=== PATIENT | male | born 1945 | race Caucasian/White ===

== ENCOUNTER 2024-07-11 14:27 | Inpatient (IN) | payer OTHER, SELFPAY ==
[2024-07-11] VITALS (27 sets, daily range): BP systolic 59–173; BP diastolic 44–109; BMI 26.8; BMI 26.4
[2024-07-11 10:08] LABS: % Basophils 0.5 % (0-2); % Eosinophils 2.5 % (0-6); % Immature Granulocytes 0.4 % (0-0.5); % Lymphocytes 38.3 % (20.5-51.1); % Neutrophils 48.3 % (42.2-75.2); Absolute Eosinophils 0.1 10^3/uL (0-0.7); Absolute Lymphocytes 2.2 10^3/uL (1.2-3.4); Absolute Monocytes 0.6 10^3/uL (0.1-0.6); Absolute Neutrophils 2.7 10^3/uL (1.4-6.5); Hematocrit 43.6 % (39.0-52.0); Mean Corp Hgb Conc. 34.4 g/dL (33.0-37.0); Mean Corpuscular Hgb 29.8 pg (27.0-31.0); Mean Corpuscular Volume 86.7 fL (80.0-94.0); Mean Platelet Volume 10.4 fL (7.4-10.4); Nucleated Red Blood Cells % 0 % (-); Platelet Count 222 10^3/uL (130-400); Red Blood Cell Count 5.03 10^6/uL (4.70-6.10); Red Cell Dist. Width 13.3 % (11.5-14.5); White Blood Cell Count 5.6 10^3/uL (4.8-10.8)
[2024-07-11 10:16] LABS: ALT (SGPT) 22 U/L (0-50); AST (SGOT) 26 U/L (17-59); Albumin 5.4 g/dl (3.5-5.0); Alkaline Phosphatase 76 U/L (38-126); Blood Urea Nitrogen 15 mg/dl (9-20); Calcium 9.3 mg/dl (8.4-10.2); Carbon Dioxide 24 mmol/L (22-30); Chloride 102 mmol/L (98-107); Glucose 149 mg/dl (70-99); Potassium 3.5 mmol/L (3.5-5.1); Sodium 141 mmol/L (135-145); Total Protein 8.6 g/dl (6.3-8.2); eGFR > 60.00
[2024-07-11 10:28] LABS: Troponin I < 0.012 ng/ml
--- NOTE | 2024-07-11 11:47 | ED.GENMED ---
History of Present Illness
<Jon Benites PA-C - Last Filed: 07/11/24 16:36>
General
Chief Complaint: Chest Pain
Time Seen by Provider: 07/11/24 11:26
History of Present Illness
History of Present Illness:
78-year-old male presents to the emergency department for evaluation of exertional chest discomfort for the past 3 days. States that if he ambulates short distance he has a pressure sensation in the right chest that resolves after a short period of
time at rest. Currently no pain at present in the ED. States the symptoms are comparable to his past angina, had an MO in 2004 and underwent stenting at this hospital. Follows with Dr. Victor. No pleuritic pain, nausea, vomiting, or diarrhea.
Pain does not radiate to the back or shoulders.
Past History
<Jon Benites PA-C - Last Filed: 07/11/24 16:36>
Past History
ED Past Medical History: HTN, Hypercholesterolemia and Hypothyroidism
Social History
Tobacco: Former smoker
Personal: Single
Review of Systems
<Jon Benites PA-C - Last Filed: 07/11/24 16:36>
Review of Systems
Allergies reviewed?: Yes
All Other Systems: ROS reviewed and negative except as documented in HPI and ROS
Phy Exam
<Jon Benites PA-C - Last Filed: 07/11/24 16:36>
Physical Exam
Physical Exam:
GEN: Well appearing, NAD, WDWN
HEENT: Oral mucosa moist, no scleral icterus
Cardiac: Regular rate and rhythm, no murmurs
Lung: No respiratory distress, no tachypnea, lungs clear to auscultation bilaterally
MSK: No gross deformity or injuries
Skin: Good color, no pallor or jaundice, no rashes
Neuro: AO x3, moves all extremities freely
Psych: Calm, cooperative
Scores
<Jon Benites PA-C - Last Filed: 07/11/24 16:36>
Heart Score for Chest Pain Patients
STEMI patient?: No
History: Highly Suspicious
ECG: Normal
Age: >/= 65 years
Risk Factors: >/= 3 Risk Factors or History of CAD
Troponin: </= Normal Limit
Heart Score for Chest Pain Patients: 6
Heart Score Risk: 20.3% MACE over next 6 weeks
<JAMA Soto - Last Filed: 07/15/24 08:54>
Heart Score for Chest Pain Patients
Heart Score for Chest Pain Patients: 6
Heart Score Risk: 20.3% MACE over next 6 weeks
Course
<Jon Benites PA-C - Last Filed: 07/11/24 16:36>
Orders/Labs/Results
Orders:
Orders
07/11/24 Breakfast
NPO
Allow oral meds: Yes
Allow clear liquids: No
07/11/24 09:34
Electrocardiogram (*1) Urgent
Reason for Study: Chest Pain
EKG- Treatment ONCE
07/11/24 09:45
Complete Blood Count/With Diff Urgent
Comprehensive Metabolic Panel Urgent
Magnesium Urgent
TSH Urgent
Comment: ADD ON
Troponin I Urgent
07/11/24 11:44
EKG- Treatment ONCE
07/11/24 12:45
Electrocardiogram (*1) Urgent
Reason for Study: Chest Pain
07/11/24 12:52
Echo 2D MMode Color/Doppler Routine
Reason for Study: SOB/chest discomfort
Metoprolol [Lopressor] 12.5 mg PO NOW STA
07/11/24 12:53
EKG [Electrocardiogram (*1)] Routine
Reason for Study: Chest Pain
07/11/24 13:00
Flush (0.9% Sodium Chloride) [Flush (Nss)] See Dose Instructions IV PER PROTOCOL
07/11/24 13:11
Troponin I Urgent
07/11/24 13:49
Admit/Transfer Patient As Directed
Co-Sign Provider:
Level of Care: Inpatient admission
Assign to:: IVU
Physician / Group: Ananth/Hospitalist
Diagnosis: CP, angina, ACS, trop elevation
Reason for Hospitalization: ACS, angina, trop elevation
Expected length of stay greater than two midnights?: Yes
ELOS- Estimated Length of Stay in days: 3
I certify the patient meets the requirements for IP care: Yes
PRN Pain Medication Management As Directed
May give lesser potent ordered pain med per pt: Yes
preference::
Protocol:: Medication orders for pain may be administered in a
manner that supports deferring to patient preference
when the pt is:
- Requesting an ordered lesser potent pain medication.
Least to most potent pain medications are defined
as: acetaminophen < NSAID < tramadol < opioids
(morphine, oxycodone, hydromorphone).
- Requesting a lesser dose of the same medication IF
ORDERED.
- Requesting a less intrusive route of administration
if both routes are prescribed by the provider (PO <
IV).
07/11/24 13:52
Code Status As Directed
Resuscitation Status: Full Code
07/11/24 13:58
CR Chest - 2 Views Stat
Comment:
Reason For Exam: chest pain
07/11/24 14:00
Aspirin Chewable [Low Strength Aspirin] 324 mg PO NOW STA
Heparin 4,000 units IV NOW STA
Heparin 97141 Units/250 ml 25,000 units in 250 ml IV PER PROTOCOL
Weight to be used for heparin protocol in kilograms (kg):: 77.6
Protocol:: Cardiac Tx/Acute Coronary
PTT Goal Range to be used:: PTT 73 to 111 seconds
Order type:: Initial
INITIAL Infusion Dose (UNITS/KG/hr) & then follow protocol:: 12 units/kg/hr
Infusion Dose in UNITS/hr & then follow protocol (UNITS/hr):: 950
INFUSION RATE in mL/hr & then follow protocol (mL/hr):: 9.5
PTT less than or equal to 64 seconds:: Increase rate by 200 units/hr (+ 2 mL/hr)
PTT 64.1 to 72.9 seconds:: Increase rate by 100 units/hr (+ 1 mL/hr)
PTT 73 to 111 seconds:: Target Range. No change in rate.
PTT 111.1 to 130.9 seconds:: Decrease rate by 100 units/hr (- 1 mL/hr)
PTT 131 to 199.9 seconds:: HOLD for 1 hr. Then decrease rate by 200 units/hr (- 2 mL/hr)
PTT greater than or equal to 200 seconds:: HOLD for 2 hrs & Notify Provider. Then decrease by 200 units/hr (-
2 mL/hr)
Lab follow-up:: Each change, PTT q6h until 2 consecutive are therapeutic. Then PTT
daily.
07/11/24 14:24
PRN Pain Medication Management As Directed
May give lesser potent ordered pain med per pt: Yes
preference::
Protocol:: Medication orders for pain may be administered in a
manner that supports deferring to patient preference
when the pt is:
- Requesting an ordered lesser potent pain medication.
Least to most potent pain medications are defined
as: acetaminophen < NSAID < tramadol < opioids
(morphine, oxycodone, hydromorphone).
- Requesting a lesser dose of the same medication IF
ORDERED.
- Requesting a less intrusive route of administration
if both routes are prescribed by the provider (PO <
IV).
07/11/24 15:42
Electrocardiogram (*1) Q6H
Reason for Study: Chest Pain
Comment: at admission and Q3H for total of 3, to be done with each troponin
07/11/24 15:42
CARDIOLOGY CONSULT Routine
Consulting Provider: Daniel Morris
Was physician already notified: Yes
Reason for consult: ACS, CP, stable angina
Activity As Directed
Activity Level: As Tolerated
Weight As Directed
Frequency: Daily
07/11/24 17:38
PTT Urgent
Comment: Obtain baseline before beginning heparin infusion if not already collected
07/11/24 18:00
Atorvastatin [Lipitor] 40 mg PO QPM
07/11/24 20:00
Metoprolol [Lopressor] 25 mg PO BID
07/11/24 23:55
0.9% Sodium Chloride 1000 ml [Nss] 1,000 ml IV 75 mls/hr
07/12/24 02:57
Lipid Profile [Cardiovascular Evaluation] IN AM
07/12/24 06:00
Levothyroxine [Synthroid] 88 mcg PO DAILY@0600
07/12/24 08:00
Amlodipine [Norvasc] 5 mg PO DAILY
Aspirin Low Dose EC [Aspir Low (Enteric Coated)] 81 mg PO DAILY
Cholecalciferol (Vitamin D3) [VITAMIN D3 (cholecalciferol)] 25 mcg PO DAILY
FOLic ACID [Folvite] 0.4 mg PO DAILY
Hydrochlorothiazide [Oretic] 12.5 mg PO DAILY
Multivitamin [Theragran] 1 tablet PO DAILY
alpha lipoic acid 100 mg PO DAILY
07/13/24 11:00
DC Protocol for Telemetry ONCE
Abnormal Lab Results
07/11/24 07/11/24
09:45 13:11
Monocytes % 10.0 H %
(1.7-9.3)
Glucose 149 H mg/dl
(70-99)
Troponin I 0.489 H* D ng/ml
Total Protein 8.6 H g/dl
(6.3-8.2)
Albumin 5.4 H g/dl
(3.5-5.0)
07/11/24 09:45
07/11/24 09:45
Vital Signs
Initial and Last Documented VS:
Initial Vital Signs
Temp Pulse Resp BP Pulse Ox
99.1 F 86 18 150/91 98
07/11/24 09:47 07/11/24 09:47 07/11/24 09:47 07/11/24 09:47 07/11/24 09:47
Last Documented Vital Signs
Temp Pulse Resp BP Pulse Ox
98.3 F 78 17 135/76 92
07/15/24 02:54 07/15/24 03:00 07/15/24 02:54 07/15/24 02:54 07/15/24 03:26
<JAMA Soto - Last Filed: 07/15/24 08:54>
Orders/Labs/Results
Orders:
Orders
07/11/24 Breakfast
NPO
Allow oral meds: Yes
Allow clear liquids: No
07/11/24 09:34
Electrocardiogram (*1) Urgent
Reason for Study: Chest Pain
EKG- Treatment ONCE
07/11/24 09:45
Complete Blood Count/With Diff Urgent
Comprehensive Metabolic Panel Urgent
Magnesium Urgent
TSH Urgent
Comment: ADD ON
Troponin I Urgent
07/11/24 11:44
EKG- Treatment ONCE
07/11/24 12:45
Electrocardiogram (*1) Urgent
Reason for Study: Chest Pain
07/11/24 12:52
Echo 2D MMode Color/Doppler Routine
Reason for Study: SOB/chest discomfort
Metoprolol [Lopressor] 12.5 mg PO NOW STA
07/11/24 12:53
EKG [Electrocardiogram (*1)] Routine
Reason for Study: Chest Pain
07/11/24 13:00
Flush (0.9% Sodium Chloride) [Flush (Nss)] See Dose Instructions IV PER PROTOCOL
07/11/24 13:11
Troponin I Urgent
07/11/24 13:49
Admit/Transfer Patient As Directed
Co-Sign Provider:
Level of Care: Inpatient admission
Assign to:: IVU
Physician / Group: Ananth/Hospitalist
Diagnosis: CP, angina, ACS, trop elevation
Reason for Hospitalization: ACS, angina, trop elevation
Expected length of stay greater than two midnights?: Yes
ELOS- Estimated Length of Stay in days: 3
I certify the patient meets the requirements for IP care: Yes
PRN Pain Medication Management As Directed
May give lesser potent ordered pain med per pt: Yes
preference::
Protocol:: Medication orders for pain may be administered in a
manner that supports deferring to patient preference
when the pt is:
- Requesting an ordered lesser potent pain medication.
Least to most potent pain medications are defined
as: acetaminophen < NSAID < tramadol < opioids
(morphine, oxycodone, hydromorphone).
- Requesting a lesser dose of the same medication IF
ORDERED.
- Requesting a less intrusive route of administration
if both routes are prescribed by the provider (PO <
IV).
07/11/24 13:52
Code Status As Directed
Resuscitation Status: Full Code
07/11/24 13:58
CR Chest - 2 Views Stat
Comment:
Reason For Exam: chest pain
07/11/24 14:00
Aspirin Chewable [Low Strength Aspirin] 324 mg PO NOW STA
Heparin 4,000 units IV NOW STA
Heparin 23486 Units/250 ml 25,000 units in 250 ml IV PER PROTOCOL
Weight to be used for heparin protocol in kilograms (kg):: 77.6
Protocol:: Cardiac Tx/Acute Coronary
PTT Goal Range to be used:: PTT 73 to 111 seconds
Order type:: Initial
INITIAL Infusion Dose (UNITS/KG/hr) & then follow protocol:: 12 units/kg/hr
Infusion Dose in UNITS/hr & then follow protocol (UNITS/hr):: 950
INFUSION RATE in mL/hr & then follow protocol (mL/hr):: 9.5
PTT less than or equal to 64 seconds:: Increase rate by 200 units/hr (+ 2 mL/hr)
PTT 64.1 to 72.9 seconds:: Increase rate by 100 units/hr (+ 1 mL/hr)
PTT 73 to 111 seconds:: Target Range. No change in rate.
PTT 111.1 to 130.9 seconds:: Decrease rate by 100 units/hr (- 1 mL/hr)
PTT 131 to 199.9 seconds:: HOLD for 1 hr. Then decrease rate by 200 units/hr (- 2 mL/hr)
PTT greater than or equal to 200 seconds:: HOLD for 2 hrs & Notify Provider. Then decrease by 200 units/hr (-
2 mL/hr)
Lab follow-up:: Each change, PTT q6h until 2 consecutive are therapeutic. Then PTT
daily.
07/11/24 14:24
PRN Pain Medication Management As Directed
May give lesser potent ordered pain med per pt: Yes
preference::
Protocol:: Medication orders for pain may be administered in a
manner that supports deferring to patient preference
when the pt is:
- Requesting an ordered lesser potent pain medication.
Least to most potent pain medications are defined
as: acetaminophen < NSAID < tramadol < opioids
(morphine, oxycodone, hydromorphone).
- Requesting a lesser dose of the same medication IF
ORDERED.
- Requesting a less intrusive route of administration
if both routes are prescribed by the provider (PO <
IV).
07/11/24 15:42
Electrocardiogram (*1) Q6H
Reason for Study: Chest Pain
Comment: at admission and Q3H for total of 3, to be done with each troponin
07/11/24 15:42
CARDIOLOGY CONSULT Routine
Consulting Provider: Daniel Morris
Was physician already notified: Yes
Reason for consult: ACS, CP, stable angina
Activity As Directed
Activity Level: As Tolerated
Weight As Directed
Frequency: Daily
07/11/24 17:38
PTT Urgent
Comment: Obtain baseline before beginning heparin infusion if not already collected
07/11/24 18:00
Atorvastatin [Lipitor] 40 mg PO QPM
07/11/24 20:00
Metoprolol [Lopressor] 25 mg PO BID
07/11/24 23:55
0.9% Sodium Chloride 1000 ml [Nss] 1,000 ml IV 75 mls/hr
07/12/24 02:57
Lipid Profile [Cardiovascular Evaluation] IN AM
07/12/24 06:00
Levothyroxine [Synthroid] 88 mcg PO DAILY@0600
07/12/24 08:00
Amlodipine [Norvasc] 5 mg PO DAILY
Aspirin Low Dose EC [Aspir Low (Enteric Coated)] 81 mg PO DAILY
Cholecalciferol (Vitamin D3) [VITAMIN D3 (cholecalciferol)] 25 mcg PO DAILY
FOLic ACID [Folvite] 0.4 mg PO DAILY
Hydrochlorothiazide [Oretic] 12.5 mg PO DAILY
Multivitamin [Theragran] 1 tablet PO DAILY
alpha lipoic acid 100 mg PO DAILY
07/13/24 11:00
DC Protocol for Telemetry ONCE
Abnormal Lab Results
07/11/24 07/11/24
09:45 13:11
Monocytes % 10.0 H %
(1.7-9.3)
Glucose 149 H mg/dl
(70-99)
Troponin I 0.489 H* D ng/ml
Total Protein 8.6 H g/dl
(6.3-8.2)
Albumin 5.4 H g/dl
(3.5-5.0)
07/11/24 09:45
07/11/24 09:45
Vital Signs
Initial and Last Documented VS:
Initial Vital Signs
Temp Pulse Resp BP Pulse Ox
99.1 F 86 18 150/91 98
07/11/24 09:47 07/11/24 09:47 07/11/24 09:47 07/11/24 09:47 07/11/24 09:47
Last Documented Vital Signs
Temp Pulse Resp BP Pulse Ox
98.3 F 78 17 135/76 92
07/15/24 02:54 07/15/24 03:00 07/15/24 02:54 07/15/24 02:54 07/15/24 03:26
<Jon Benites PA-C - Last Filed: 07/11/24 16:36>
MDM/Problems Addressed
MDM/Problems Addressed:
After consultation with cardiology the plan was to admit the patient for further ischemic workup. However while still in the emergency department his repeat cardiac enzymes came back markedly elevated. He remained pain-free at this time. After
lab results were reviewed by myself aspirin and heparin infusion/bolus was ordered. Cardiology was reconsulted by the hospitalist team who will send the patient for urgent cardiac catheterization.
<Jon Benites PA-C - Last Filed: 07/11/24 16:36>
Comment
Comment:
EKG independently interpreted by me shows normal sinus rhythm at a rate of [address] changes concerning for ischemia
*Critical Care Note
Total Time (30-74mins, 75-104mins- exclusive of procedures): Not Applicable
ED Attending Note
<Jon Benites PA-C - Last Filed: 07/11/24 16:36>
-
Portions of this chart may have been created with voice recognition software.� Occasional wrong word or��sound alike� substitutions may have occurred due to the inherent limitations of voice recognition software.
Discharge Plan
Departure
Patient Disposition: Admit
Date of Disposition: 07/11/24
Time of Disposition: 12:44
Admit to: Telemetry
Presentation/result/management discussed w/ accepting MD/DO: Hospitalist
Discharge Problem:
Angina pectoris, Non-ST elevation MO (NSTEMI)
Interventions
Interventions:
*Risk Screen - Suicide Last Done: 07/11/24 16:05
*General Assessment Last Done: 07/11/24 09:47
*Neglect/Abuse Screening Last Done: 07/11/24 09:47
ED- Fall Risk Assessment Last Done: 07/11/24 12:00
*ED COVID-19 Vaccine History Last Done: 07/11/24 11:57
*Nursing Disposition Last Done: 07/11/24 14:40
ED- Cardiac Assessment Last Done: 07/11/24 11:57
Discharge Date and Time
Discharge Date/Time: 07/11/24 14:40
--- NOTE | 2024-07-11 12:32 | CON.CAR ---
Addendum entered and electronically signed by Daniel Morris MD 07/11/24 15:37:
I saw and examined the patient.
The INSPECTOR AIDE's note was reviewed and I agree with the note.
Comment:
78 y/o (patient of Dr. Victor) with CAD with hx MD and LAD stenting 2004 (100% RCA and 70% mid LCX - treated medically)- mildly abnormal stress test 2014- treated medically who presents with 3 days of exertional chest pain. First troponin was normal
but second was elevated at 0.5. ECG reveals normal sinus rhythm with inferior ST depressions. We will plan for cardiac catheterization for NSTEMI. Start heparin. Patient is status post aspirin 325 mg. Titrate antihypertensives while inpatient.
Original Note:
Consultation
Consultation Request
Date/Time Consultation Requested: 07/11/24 1149
Date/Time Consultation Performed: 07/11/24 1230
Requesting Provider: Jon WEINER
Performing Provider: Jeanne YUN for Dr. Morris
Reason for Consultation: chest discomfort
Medical History
-
Chief Complaint: chest discomfort
History of Present Illness:
78 y/o (patient of Dr. Victor) with CAD with hx MD and LAD stenting 2004 (100% RCA and 70% mid LCX - treated medically)- mildly abnormal stress test 2014- treated medically, hypertension, dyslipidemia, allergy to ACEI/ARB (hives), hearing impairment
(with hearing aids), incidentally noted PAD (CT scan with right common iliac artery stenosis) who is here for evaluation of chest discomfort over the past few days. It is right-sided feeling of weight noted when he walks to his mailbox. It takes
about 20 minutes to resolve with rest. There is associated SOB. Last happened this AM 8:30ish. He has no CP at rest. He has not taken nitro. He takes ASA daily, including this AM. He is in no distress at the time of my assessment. His ex , who
is present in the room tells me he has had hand and leg swelling recently, but none noted at present.
Past Medical History
Past Medical History: CAD, HTN, Hypercholesterolemia and Other (as above)
Social History
Tobacco: Former Smoker (quit 2004)
Family History
Family History: Reviewed & Not Pertinent
Allergies / Home Medications
Allergy/AdvReac Type Severity Reaction Status Date / Time
NKA - No Known Allergies Allergy Unknown Uncoded 07/11/24 09:46
�Medication �Instructions �Recorded �Confirmed �Type
amlodipine 5 mg tablet 5 mg PO DAILY 02/17/20 02/17/20 History
aspirin 81 mg tablet,delayed 81 mg PO DAILY 02/17/20 02/17/20 History
release
atorvastatin 40 mg tablet 40 mg PO DAILY 02/17/20 02/17/20 History
cholecalciferol (vitamin D3) 25 1,000 units PO DAILY 02/17/20 02/17/20 History
mcg (1,000 unit) tablet
folic acid 400 mcg tablet 0.4 mg PO DAILY 02/17/20 02/17/20 History
levothyroxine 75 mcg tablet 75 mcg PO DAILY 02/17/20 02/17/20 History
metoprolol tartrate 25 mg tablet 12.5 mg PO BID 02/17/20 02/17/20 History
multivitamin with folic acid 400 1 tab PO DAILY 02/17/20 02/17/20 History
mcg tablet (Tab-A-Kaelyn)
nitroglycerin 0.4 mg sublingual 0.4 mg sublingual TIDPRN PRN chest 02/17/20 02/17/20 History
tablet pain
Review of Systems
-
History Source: Patient
All other systems: Negative unless noted
Respiratory: Trouble Breathing
Cardiac: Chest Pain
Physical Exam
Vital Signs
Temp Pulse Resp BP Pulse Ox
99.1 F 82 16 159/95 94
07/11/24 09:47 07/11/24 12:00 07/11/24 12:00 07/11/24 12:00 07/11/24 12:00
Lab Results
02/03/25 09:45
07/11/24 09:45
Troponin I < 0.012 ng/ml 07/11/24 09:45
Physical Exam
General: Well Developed, Well Nourished and No Apparent Distress
HEENT: Normocephalic and Anicteric
Respiratory: Clear and Non Labored Respirations
Cardiac: Regular Rhythm
Musculoskeletal: No Edema
Skin: Warm and Dry
Neuro: AO x 3
Psych: Calm
Impression / Plan
-
Chest discomfort:
-sounds anginal to my assessment, but is only noted with exertion
-troponin and EKG normal. Trend.
-check echo
-likely ischemic evaluation tomorrow (will discuss with display associate)
-increase metoprolol to 25 mg PO BID. Continue amlodipine. Could also add long-acting nitrate if needed.
CAD with hx MD with LAD stenting, 100% RCA stenosis, 70% Lcx stenosis 2005:
-continue ASA, statin, BB
-w/u as above
Dyslipidemia:
-check lipids and continue statin
HTN:
-elevated in ER
-increase BB and monitor. Can adjust other meds if needed. Of note, patient reported to have allergy to ACEI/ARB in OP chart (hives).
Data Reviewed
-
EKG: Tracing Personally Visualized and interpreted (NSR)
Medical Tests (Nuc Med, Echo etc): Report Reviewed by me (Echo 05/13/2022: Normal left ventricular size, wall thickness and systolic function. LV ejection fraction is 60%. Mild tricuspid regurgitation. Estimated pulmonary artery pressure of
20-25 mmHg. Aortic sclerosis without stenosis.) and Other (Cath 2004: LAD s/p stent, 100% RCA stenosis, 70% mid LCX; stress test (nuclear) 2014- EF 61%, small inferior/apical ischemia, 8 min, 9 METS, [address] depression)
Labs: Labs Reviewed by me
--- NOTE | 2024-07-11 13:31 | HPS.HSE ---
Addendum entered and electronically signed by Shikha Wadsworth DO 07/11/24 14:34:
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
Changed admit status to IP given patient at concern for NSTEMI, hep gtt required
Change admit location to IVU
Original Note:
Family Physician
-
Family Physician: JAMA Martinez
Chief Complaint
-
Chest pain with activity
History of Present Illness
The patient is a 78 yo male with PMH significant for HTN, CAD, NH 2004 s/p stent to LAD (100% RCA and 70% mid LCx treated medically), mildy abnormal stress in 2014, allergy to ACEI/ARB (hives), hearing aids for hearing impairment, PAD (CT scan w
right common iliac artery stenosis incidental), HLD, Hypothyroidism, who presents to the ED after 2 episodes of right-sided chest pain with exertion associated with SOB that improved after 20-30 minutes of rest. He denies active CP while lying in
the ED bed. No n/v/d, no diaphoresis, no jaw pain, no pain down left arm, no recent trauma, no radiation of pain the back or shoulders. He says it feels similar to 2004 when he had an NH, but 'not as intense.' He took baby aspirin this am.
Fine Artist is Dr. Victor.
Medical History
Past Medical History
Past Medical History: Reports CAD (NH and LAD stenting 2004 (100% RCA and 70% mid LCX - treated medically)-mildly abnormal stress test 2014, ), HTN, Hypercholesterolemia, Hypothyroidism and Other
Additional Past Medical History:
allergy to ACEI/ARB (hives), hearing impairment (with hearing aids), incidentally noted PAD (CT scan with right common iliac artery stenosis)
Past Surgical History: Reports Cardiac (stent 2004 LAD)
Social History
Tobacco: Former Smoker (quite 2004)
Alcohol: None (for 40 years)
Drug: None
Personal: ( is POA)
Family History
Family History: Not pertinent
Allergies / Home Medications
Allergies reflects when Allergies were last updated in [facility].
Home Medications with original date entered in [facility]
Allergy/Medication List:
Allergies
Allergy/AdvReac Type Severity Reaction Status Date / Time
NKA - No Known Allergies Allergy Unknown Uncoded 07/11/24 09:46
Home Medications
amlodipine 5 mg tablet 5 mg PO DAILY 02/17/20
aspirin 81 mg tablet,delayed release 81 mg PO DAILY 02/17/20
atorvastatin 40 mg tablet 40 mg PO QPM 02/17/20
cholecalciferol (vitamin D3) 25 mcg (1,000 unit) tablet 1,000 units PO DAILY 02/17/20
folic acid 400 mcg tablet 0.4 mg PO DAILY 02/17/20
metoprolol tartrate 25 mg tablet 12.5 mg PO BID 02/17/20
multivitamin with folic acid 400 mcg tablet (Tab-A-Kaelyn) 1 tab PO DAILY 02/17/20
nitroglycerin 0.4 mg sublingual tablet 0.4 mg sublingual Q5MPRN PRN chest pain 02/17/20
alpha lipoic acid 100 mg capsule 100 mg PO DAILY 07/11/24
hydrochlorothiazide 12.5 mg tablet 12.5 mg PO DAILY 07/11/24
levothyroxine 88 mcg tablet (Synthroid) 88 mcg PO DAILY@0600 07/11/24
Review of Systems
-
A 12 point ROS was completed and negative except as noted: Yes
Physical Exam
Vital Signs
Vital Signs
Temp Pulse Resp BP Pulse Ox
99.1 F 82 16 159/95 94
07/11/24 09:47 07/11/24 12:00 07/11/24 12:00 07/11/24 12:00 07/11/24 12:00
Physical Exam
General: Well Developed, Well Nourished, No Apparent Distress, Comfortable and Conversant
HEENT: NormoCephalic, Anicteric and Moist mucous membranes
Respiratory: Clear
Cardiac: S1/S2 and Regular Rhythm
GI: Soft, Non Tender, Non Distended and Normal Bowel Sounds
Musculoskeletal: No Clubbing, No Cyanosis and No Edema
Skin: Warm and Dry
Neuro: AO x 3, No Motor Deficits and Nonfocal/grossly intact
Psych: Calm
Laboratory Results
-
07/11/24 09:45
07/11/24 09:45
Laboratory Results
Total Bilirubin 1.0 mg/dl (0.2-1.3) 07/11/24 09:45
AST 26 U/L (17-59) 07/11/24 09:45
ALT 22 U/L (0-50) 07/11/24 09:45
Alkaline Phosphatase 76 U/L (38-126) 07/11/24 09:45
Troponin I < 0.012 ng/ml 07/11/24 09:45
Data Reviewed
-
Medical Tests (Nuc Med, Echo, EKG etc): Image Personally Visualized and interpreted (EKG- no STEMI, NSR) and Report Reviewed by me
Lab Data: Labs Reviewed by me
Impression/Plan
-
IMPRESSION:
# Chest pain w Concern is for acute coronary syndrome, likely stable angina
-check CXR
-trop and EKG without evidence for acute cardiac ischemia
-Cards saw pt in ED, rec is for NPO p mn, echo, ischemic cardiac eval tomorrow per Cards
-increased metoprolol to 25 PO BID, cont amlodipine
-possibly add Imdur , will monitor BP and add if necessary
#CAD s/p stent to LAD in 2004 after acute NH, 100% RCA stenosis, 70% LCx stenosis
-cont aspirin, statin
-Metoprolol-will titrate up to 25 BID
# Hypothyroidism
-check TSH
-on Levothyroxine 88 mcg daily, continue
#HLD
-statin
#Essential HTN
-as above
# Note Allergy to ACEI/ARB (hives)
#Hearing impairment (with hearing aids)
#Incidentally noted PAD (CT scan with right common iliac artery stenosis)
PLAN:
NPO p mn
Gentle IVF while NPO
aspirin,statin, BB
Cards consult
DVT proph-Lovenox
Full Code
[2024-07-11] MEDS: LOPRESSOR 12.5 MG PO (13:40)
[2024-07-11 13:52] LABS: Troponin I 0.489 ng/ml
[2024-07-11] MEDS: HEPARIN 4000 UNITS IV (14:26)
[2024-07-11] MEDS: LOW STRENGTH ASPIRIN 324 MG PO (14:26)
--- NOTE | 2024-07-11 14:30 | W.PN.UPDATE ---
Update Note
Progress Note Update
Troponin is now noted to be elevated. Patient remains CP free. Diagnosis now NSTEMI. ASA and heparin drip ordered. Plan for cath today- discussed with patient, Dr. Morris, Dr. Abarca, Dr. Wadsworth, and Jon Benites.
Scores
LEANN for NSTEMI
Age >/= 65: Yes
>/=3 CAD risk factors-HTN,High Chol,Fam hx CAD,DM,Smoker: No
Known CAD (stenosis >/=50%): Yes
ASA use in past 7 days: Yes
Severe angina (>/= 2 episodes in 24 hrs): Yes
EKG ST Changes >/= 0.5mm: No
Positive cardiac marker: Yes
Score: 5
Risk at 14 days-mortality, new/recurrent [place], severe ischemia: Intermediate Risk- 26% Risk at 14 days- all cause mortality, new or recurrent [place], or severe recurrent ischemia requiring urgent revascularization
[2024-07-11 14:40] LABS: Magnesium 2.2 mg/dl (1.6-2.3)
[2024-07-11 15:20] LABS: TSH 1.88 uIU/ml (0.47-4.68)
--- NOTE | 2024-07-11 15:22 | EDRN ---
Report given to MARLEEN Brown in the liaison inspection laboratory assistant. Patient taken to liaison inspection laboratory assistant on monitor on stretcher. Patient chest pain free on transfer.
--- NOTE | 2024-07-11 15:24 | ITS.CL.CATH ---
Childcare Attendant - Catheterization
Cardiac Catheterization
Procedure Report:
CARDIAC CATHETERIZATION REPORT
Date of Procedure: 07/11/2024
Referring: Daniel Morris M.D.
INDICATION: Non-ST elevation myocardial infarction.
PROCEDURE:
1. Left heart catheterization.
2. Coronary angiography
A total of 17 minutes of procedural/moderate sedation was utilized. An independent medical insurance clerk was present to assist with and help manage the patient's level of consciousness and physiologic status.
ACCESS:
1. 6 Amharic right rate artery using a modified Seldinger technique.
CATHETERS:
1. 5 Amharic JR4.
2. 5 Amharic JL 3.5.
HEMODYNAMIC DATA
Weight (kg): 77.6
AO (s/d/x, mmHg): 121/75/95
LV (s/x mmHg): 121/9
LEFT VENTRICULOGRAPHY: Not performed.
CORONARY ANGIOGRAPHY
Dominance: Left.
Left Main: Normal size, bifurcating vessel. There is a calcified, 85-90% lesion in the distal margin of the left main leading into the LAD and circumflex ostia.
LAD: Normal size vessel giving rise to 1 significant diagonal. A patent stent is visible in the proximal/mid vessel, spanning the origin of the diagonal. There is an 80-90% lesion in the ostium of the vessel that extends from the left main
coronary artery. There is a 90% lesion in the proximal LAD, immediately proximal to the stent margin. There are luminal irregularities immediately distal to the stent.
Ramus: Congenitally absent.
Circumflex: Large size, dominant vessel that gives rise to 1 large obtuse marginal before terminating as a medium sized LPDA. This marginal subsequently bifurcates into a large upper and medium sized lower branch. There is a 70+% lesion in the
ostium of the circumflex as an extension from the left main coronary artery. There is a 40% lesion in the proximal margin of the obtuse marginal, spanning the bifurcation into the upper and lower branch.
RCA: Small size, nondominant vessel. The artery is chronically totally occluded at its proximal margin. Bridging collaterals observed.
INTERVENTION(S)
None
Closure Device: Vascular band.
Radiation (mGy): 159.83
DAP (cm2.Gy): 13.6182
Fluoroscopy time (minutes): 2.3
CONCLUSIONS
1. Left dominant circulation with an 85-90% lesion in the distal margin of the left main coronary artery extending into an 80-90% lesion in the ostium of the LAD and a 70+ percent lesion in the ostium of the circumflex. There is also an 90% lesion
in the proximal LAD, immediately proximal to the previously placed stent and a 40% lesion in the proximal margin of the obtuse marginal, spanning the bifurcation of the marginal into a large upper any medium size lower branch.
2. Normal filling pressures (LVEDP = 9 mmHg at 77.6 kg).
RECOMMENDATIONS:
1. Expectant management after cardiac catheterization via right approach.
2. Limited weight bearing on the right wrist for one week.
3. Consultation with CT surgery regarding optimal revascularization strategy.
4. Aggressive secondary prevention with high-dose, high potency statin. Goal LDL <55.
5. OMT/GDMT as hemodynamics will tolerate.
6. Echocardiogram ordered and pending.
7. Heparin drip. Hold P2 Y12 inhibitors.
Copy to: Daniel Morris M.D., Michael Victor M.D., JAMA Martinez
Denis Abarca, , FACC, FACP
--- NOTE | 2024-07-11 16:22 | PTCARENOTE ---
Rec'd pt from cook house laborer. AOX3 and pleasant. Tele- SR. Assessment completed as documented. No complaints pain/discomfort at this time. R radial band intact. No bleeding/hematoma noted. Oriented pt to room. Currently in bed; call bing w/in reach.
--- NOTE | 2024-07-11 16:54 | CONSULT.CT ---
Consultation
-
Date/Time Consultation Requested: 07/11/24
Date/Time Consultation Performed: 07/11/24
Requesting Provider: Dr. Abarca
Performing Provider: erin YUN for Dariel Sun MD
Reason for Consultation: CABG evaluation
Patient History
Physicians
Family Physician: Godwin Coronado
Outpatient Environmental Laboratory Technician: Michael Victor
Inpatient Environmental Laboratory Technician: [facility] Cardiology
History of Present Illness
78 yo male with PMH significant for HTN, CAD, [place] 2005 s/p stent to LAD (100% RCA and 70% mid LCx treated medically), mildy abnormal stress in 2014, PAD (CT scan with incidental finding of right common iliac artery stenosis), HLD,
Hypothyroidism, who presented to [place] emergency room on 03/27/2025 after 2 episodes of right-sided chest pain with exertion associated with SOB that improved after 20-30 minutes of rest. Patient ruled in for non-STEMI with troponin 0.48.
Patient had taken his daily aspirin and was started on heparin infusion. Patient was taken to cardiac Camera Operator for surgery and found to have left main/triple-vessel coronary disease. Patient currently pain-free resting in bed.
[facility] with Dr. Abarca (R radial):
Left main: 80-90% distal left main into LAD and circumflex
LAD: 90% proximal LAD, immediately proximal to the stent margin
LCx: 70+% ostial circumflex
RCA: 100% proximal occlusion
TTE:
EF 30%, previously 60% in 2021.
Past Medical History
Past Medical History: CAD (s/p [place] & LAD stent 2004), Hypercholesterolemia, Hypothyroidism and [place] (2004)
Past Surgical History
Past Surgical History: Other (repair left quadriceps ruptured tendon)
Family History
Mother: N/A
Father: N/A
Social History
Alcohol: None (quit 40 years ago)
Drug: None
Tobacco: Former Smoker (quit 2004)
Personal:
Living: Alone
Employment: Retired ([employer] )
Allergies
Allergy/AdvReac Type Severity Reaction Status Date / Time
lisinopril Allergy Hives Verified 07/11/24 14:35
losartan Allergy Hives Verified 07/11/24 14:35
NKA - No Known Allergies Allergy Unknown Uncoded 07/11/24 09:46
Home Medications
�Medication �Instructions �Recorded �Confirmed �Type
amlodipine 5 mg tablet 5 mg PO DAILY 02/17/20 07/11/24 History
aspirin 81 mg tablet,delayed 81 mg PO DAILY 02/17/20 07/11/24 History
release
atorvastatin 40 mg tablet 40 mg PO QPM 02/17/20 07/11/24 History
cholecalciferol (vitamin D3) 25 1,000 units PO DAILY 02/17/20 07/11/24 History
mcg (1,000 unit) tablet
folic acid 400 mcg tablet 0.4 mg PO DAILY 02/17/20 07/11/24 History
metoprolol tartrate 25 mg tablet 12.5 mg PO BID 02/17/20 07/11/24 History
multivitamin with folic acid 400 1 tab PO DAILY 02/17/20 07/11/24 History
mcg tablet (Tab-A-Kaelyn)
nitroglycerin 0.4 mg sublingual 0.4 mg sublingual Q5MPRN PRN chest 02/17/20 07/11/24 History
tablet pain
alpha lipoic acid 100 mg capsule 100 mg PO DAILY 07/11/24 07/11/24 History
hydrochlorothiazide 12.5 mg tablet 12.5 mg PO DAILY 07/11/24 07/11/24 History
levothyroxine 88 mcg tablet 88 mcg PO DAILY@0600 07/11/24 07/11/24 History
(Synthroid)
Review of Systems
-
History Source: Patient
General: Reports No Symptoms
HEENT: Reports No Symptoms
Respiratory: Reports No Symptoms
Cardiac: Reports Chest Pain (exertional)
Abdomen/GI: Reports No Symptoms
: Reports No Symptoms
Musculoskeletal: Reports No Symptoms
Skin: Reports No Symptoms
Neurological: Reports No Symptoms
Vascular: Reports No Symptoms
Physical Exam
Vital Signs
Temp 98.4 F 07/11/24 15:49
Temp route: Oral 07/11/24 15:49
Pulse 76 07/11/24 16:15
Rhythm: Normal sinus rhythm 07/11/24 16:20
Resp Rate 18 07/11/24 15:49
Blood pressure 129/88 07/11/24 16:15
Blood pressure extremity used: Left upper arm 07/11/24 15:49
Position: Sitting 07/11/24 15:49
MAP (cuff-Jose Luis Monitor) 100 07/11/24 16:15
SaO2 96 07/11/24 16:15
Oxygen Mode of Delivery Room air 07/11/24 15:49
Acceptable pain level during hospitalization? Unable to answer 07/11/24 09:47
Can the patient verbally communicate their pain? Yes 07/11/24 16:05
Pain scale ratin 07/11/24 12:00
Actual Weight 77.6 kg 07/11/24 11:56
Body Mass Index (BMI) 26.8 07/11/24 11:56
Labs
07/11/24 09:45
07/11/24 09:45
Troponin I Cancelled 07/11/24 18:00
Exam
General: Well Developed, Well Nourished and No Apparent Distress
HEENT: Normocephalic, Anicteric and Moist Mucous Membranes
Neck: Trachea Midline
Respiratory: Clear
Cardiac: S1/S2 and Regular Rhythm
GI: Soft, Non Tender, Non Distended and Normal Bowel Sounds
Rectal: Deferred by Provider
Skin: Warm and Dry
Neuro: AO x 3, No Motor Deficits and Nonfocal/Grossly Intact
Lymph: No Lymphadenopathy
Psych: Calm
Assessment / Plan
-
78-year-old male with NSTEMI due to left main/triple-vessel coronary disease, HFrEF (30%)
-Case discussed with Dr. Sun. Patient agreeable to proceed with CABG on 07/12/2024
- Carotid ultrasound pending
- Stat type and screen sent
- pre-op orders completed
- needs consent
- stop Ca+ rich
Data Reviewed
-
EKG: Report Reviewed by me and Discussed with Physician
Camera Operator: Report Reviewed by me and Discussed with Physician
Labs: Labs Reviewed by me and Discussed with Physician
[2024-07-11 17:17] LABS: INR 1.02; PT 13.7 Sec (11.4-14.6)
[2024-07-11 18:12] LABS: APTT > 200 Sec (23.4-35.0)
[2024-07-11] MEDS: LIPITOR 40 MG PO (18:28)
--- NOTE | 2024-07-11 18:39 | PTCARENOTE ---
PTT >200. Faustino. Rashad WEINER aware. Instructed to redraw PTT at 2000. Next PTT at 2000.
--- NOTE | 2024-07-11 18:44 | W.PN.UPDATE ---
Update Note
Progress Note Update
STS RISK SCORE
Procedure Type:�Isolated CABG
Perioperative Outcome Estimate %
Operative Mortality 3.83%
Morbidity & Mortality 12.1%
Stroke 2.31%
Renal Failure 1.66%
Reoperation 3.67%
Prolonged Ventilation 6.74%
Deep Sternal Wound Infection 0.131%
Long Hospital Stay (>14 days) 6.43%
Short Hospital Stay (<6 days)* 33.8%
Clinical Summary
Planned Surgery: Isolated CABG, Urgent, First cardiovascular surgery
Demographics: 78 year old, White, male, 74.2kg, 168cm, BMI: 26.3 kg/m�
Lab Values: Creatinine: 0.8 mg/dL, Hematocrit: 43.6%, WBC Count: 5.6 10�/�L, Platelet Count: 430114 cells/�L
Substance Abuse: Former smoker
Risk Factors / Comorbidities: Hypertension
Vascular RF: Cerebrovascular Disease: Other CVD, Peripheral Artery Disease
Cardiac Status: Acute heart failure, NYHA Class II, Ejection Fraction = 30%
Coronary Artery Disease: 3 vessels diseased, Left Main Stenosis >=50%, Proximal LAD Stenosis >=70%, Non-ST Elevation NE, NE: 1 to 7 Days
Valve Disease: Trivial/Trace AR, Trivial/Trace MR, Mild TR
Prev. Cardiac Interv: Previous PCI: Not during this episode of care
[2024-07-11] MEDS: LOPRESSOR 25 MG PO (19:40)
--- NOTE | 2024-07-11 20:12 | PTCARENOTE ---
pt received at change of shift. pt seen and assessed in room. pt. AOx3, tele reading NSR with occ PVCs. R radial site c/d/i. PTT drawn at 8pm for heparin gtt to be restarted. This RN discussed POC including CABG prep. Pt. receptive and verbalizes
understanding. Call smart within reach. No pain at this time. Continuing to monitor.
[2024-07-11 20:17] LABS: APTT 49.1 Sec (23.4-35.0)
[2024-07-11] MEDS: HEPARIN 25000 UNITS/250 ML IV (20:34)
--- NOTE | 2024-07-11 20:38 | PTCARENOTE ---
8pm PTT resulted at 49.1. CT PA notified. Heparin restarted at 900units/hr. Next PTT at 3am per CT PA order. Continuing to monitor at this time.
[2024-07-11 20:58] LABS: Urine Albumin Negative (Neg - Trace); Urine Bilirubin Negative (Negative); Urine Character Clear (Clear); Urine Color Yellow; Urine Glucose Negative (Negative); Urine Ketone Negative (Negative); Urine Leukocyte Negative (Negative); Urine Nitrite Negative (Negative); Urine Occult Blood Negative (Negative); Urine Urobilinogen Negative (Neg - 1+)
[2024-07-11] MEDS: ATROPINE 0.1 MG/ML SYRINGE 0.5 MG IV (21:25)
[2024-07-11 21:37] LABS: Glucose - Point of Care 126 mg/dl (70-99)
[2024-07-11] MEDS: CALCIUM GLUCONATE 1000 MG IV (21:44)
[2024-07-11] MEDS: KCL 20 MEQ PO (21:59)
[2024-07-11] MEDS: NSS 250 IV (22:00)
--- NOTE | 2024-07-11 22:36 | W.PN.UPDATE ---
Update Note
Progress Note Update
-Was called urgently to assess above pt scheduled for CABG in the AM
-Pt was in bed talking to his Nurse when he was noted to suddenly become bradycardic (HR 30's) with SBP 50's, brief LOC
-Pt was immediately given 0.5 mg IV atropine and 1g of IV calcium with good response, HR 60's NSR, SBP 90's, O2 sats 96% on 2L NC
-Pt also getting PO KCL for K of 3.5 earlier and 250 mL of NS bolus x 1hr (aware of ICM with EF 30%)
-Pt is fully oriented, denies chest pain now and prior to incident. EKG unchanged from previous
-Currently on heparin gtt @ 900 units/hr
-Will cont. to closely monitor
--- NOTE | 2024-07-11 23:40 | PTCARENOTE ---
pt using call smart around 2124, this RN responded to call smart. pt in bed stating he does not feel well. tele noted HR dipping into 30s-40s. pt becomes unresponsive. carotid pulse still palpable. CT PA notified and at bedside. 0.5mg IV atropine
given, pt. responsive and talking to RNs. Now stating he feels nauseous. BP remaining hypotensive. Pt received calcium gluconate per order and 250cc NSS bolus. BP recovered, 110s/70s. CABG prep started, will finish in AM. Pt. verbalizes
understanding of bedrest orders. Call smart within reach. Continuing to monitor at this time.
[2024-07-12] VITALS (31 sets, daily range): BP systolic 87–126; BP diastolic 48–108; BMI 26.5
[2024-07-12 04:07] LABS: APTT 49.1 Sec (23.4-35.0)
[2024-07-12 04:17] LABS: Hematocrit 42.1 % (39.0-52.0); Hemoglobin 14.6 g/dL (13.0-18.0); Mean Corp Hgb Conc. 34.7 g/dL (33.0-37.0); Mean Corpuscular Hgb 29.8 pg (27.0-31.0); Mean Corpuscular Volume 85.9 fL (80.0-94.0); Mean Platelet Volume 10.7 fL (7.4-10.4); Platelet Count 217 10^3/uL (130-400); Red Cell Dist. Width 13.3 % (11.5-14.5); White Blood Cell Count 9.7 10^3/uL (4.8-10.8)
[2024-07-12 04:20] LABS: HDL Cholesterol 65 mg/dl; LDL Cholesterol, Calculated 60 mg/dl; Total Cholesterol 138 mg/dl (50-199); Triglyceride 69 mg/dl (10-149); Very Low Density Lipoprotein 13 mg/dl (0-30)
[2024-07-12 05:08] LABS: Blood Urea Nitrogen 14 mg/dl (9-20); Calcium 10.2 mg/dl (8.4-10.2); Carbon Dioxide 23 mmol/L (22-30); Chloride 104 mmol/L (98-107); Estimated Creatinine Clearance 71 ml/min; Glucose 134 mg/dl (70-99); Magnesium 2.4 mg/dl (1.6-2.3); Potassium 3.9 mmol/L (3.5-5.1); eGFR > 60.00
[2024-07-12 05:14] LABS: Sodium 140 mmol/L (135-145)
[2024-07-12] MEDS: KCL 20 MEQ PO (05:42)
[2024-07-12] MEDS: SYNTHROID 88 MCG PO (05:42)
--- NOTE | 2024-07-12 06:02 | W.PN.UPDATE ---
Update Note
Progress Note Update
-Pt did well following events last night
-Events likely d/t administration of 25 mg PO Lopressor last night
-D/C'd preop dose of BB and all other antihypertensive meds
-Will replete K
-Preop Carotid reading pending
-For CABG by Dr. Sun today, will need to be consented and to be seen by Anesthesia before presenting to OR room @ 9AM
-Will stop heparin gtt independent consultant to OR
--- NOTE | 2024-07-12 08:02 | W.PN.UPDATE ---
Update Note
Progress Note Update
Pt seen and examined
Cath reviewed
Events of last nite reviewed
Cath with left main, lad ISR, diminutive rca
Echo with ef 30ish, ant wall hypo
I agree cabg to lad/om is good option
STS risk of mortality 3.8%
Long discussion regarding the findings of cad and recomedation for cabg
Risks, complications, benefits and alternatives reviewed
Pt is agreeable to proceed with surgery today
--- NOTE | 2024-07-12 08:07 | W.CVOR.SURPR ---
CVOR Surgeon Immed Pre Op
-
I have examined this patient prior to performance of the scheduled procedure.
The patient's condition is unchanged from the time of the dictated/written History and
Physical and the patient is able to undergo the scheduled procedure.
[2024-07-12] MEDS: PROTONIX 40 MG PO (08:09)
[2024-07-12] MEDS: BACTROBAN 2% OINTMENT 1 APPLIC NASAL ×2 (08:09→20:26)
--- NOTE | 2024-07-12 08:32 | W.PN.UPDATE ---
Update Note
Progress Note Update
Admission events reviewed. Patient admitted with NSTEMI and cath showed left main and triple vessel CAD. Planned for OR today for CABG with CT Surgery. Patient will transfer to CT surgery service post-op. Hospitalist service will sign off.
[2024-07-12 08:39] LABS: Glycohemoglobin (HgbA1c) 6.4 % (4.0-5.6)
[2024-07-12 09:17] LABS: Urine Albumin 2+ (Neg - Trace); Urine Bilirubin Negative (Negative); Urine Character Clear (Clear); Urine Color Yellow; Urine Glucose Negative (Negative); Urine Ketone Negative (Negative); Urine Leukocyte Negative (Negative); Urine Nitrite Negative (Negative); Urine Occult Blood 1+ (Negative); Urine Urobilinogen Negative (Neg - 1+)
[2024-07-12 09:22] LABS: ACT+ - POC 104 Seconds (82-134)
[2024-07-12 09:25] LABS: Urine Bacteria Few (Negative); Urine Squamous Cell 0-2 /LPF (Few); Urine White Cell 0-2 /HPF (0-5)
--- NOTE | 2024-07-12 10:15 | W.PN.CD ---
Today's Communication / Plan
-
For CABG this admission for accelerated angina with NSTEMI associated with severe distal LM and 3 V CAD and NEW LV dysfunction
Will see LVEF after CABG from post-op intraop NELLIE
Likely will check predischarge echo with Definity to see LVEF
If EF still abnormal will move to add GDMT
Need to review allergy report to ARB/MICHELLE-I
Impression / Plan
-
Progressive angina => NSTEMI, peak trop 2.95 (we have not seen a decline yet)
New cardiomyopathy, lets home this is stunning and improves quickly after CABG
Severe progressive CAD, see cath report: LM, ostial LAD/LCx, occluded RCA
Mixed hyperlipidemia
- New LDL goal for him is < 55
HTN
Reporte allergy to MICHELLE-I/ARB in OP chart (hives)
- Will need to review to see if true hives that would make ARNI contraindicated
Subjective: Feels well this morning. CABG soon
Physical Exam
Vital Signs/Labs
Vital Signs
Temp Pulse Resp BP Pulse Ox
97.4 F 60 18 97/71 97
07/12/24 07:00 07/12/24 07:27 07/12/24 07:00 07/12/24 07:27 07/12/24 07:00
07/11/24 07/12/24 07/13/24
06:59 06:59 06:59
Actual Weight 74.5 kg
07/12/24 02:57
07/12/24 04:31
PT 13.7 Sec (11.4-14.6) 07/11/24 16:56
INR 1.02 07/11/24 16:56
APTT 49.1 Sec (23.4-35.0) H 07/12/24 02:57
Magnesium 2.4 mg/dl (1.6-2.3) H 07/12/24 04:31
Triglycerides 69 mg/dl (10-149) 07/12/24 02:57
LDL Cholesterol, Calc 60 mg/dl 07/12/24 02:57
VLDL Cholesterol, Calc 13 mg/dl (0-30) 07/12/24 02:57
HDL Cholesterol 65 mg/dl 07/12/24 02:57
TSH 1.88 uIU/ml (0.47-4.68) 07/11/24 09:45
LAB Results
07/11/24 07/11/24 07/11/24
09:45 13:11 16:56
Troponin I < 0.012 0.489 H* D 1.870 H* D
07/11/24 07/12/24 07/12/24
18:00 00:30 02:57
Troponin I Cancelled Cancelled 2.950 H*
Physical Exam
Constitutional: No acute distress
EENT: Anicteric
Cardiovascular: Rhythm & rate is regular and Pedal edema is absent
GI: Soft and Distention absent
Neuro/Psych: AO x 3
Other: Cath Site (radial site no bleeding/hematoma. pulse normal, hand normally perfused)
Data Reviewed
-
Date of Service: July 12, 2024
[2024-07-12 10:29] LABS: ACT+ - POC 627 Seconds (82-134)
[2024-07-12 10:33] LABS: B.E. - POC -1.6 mmol/L; Glucose - POC 126 mg/dl (70-99); HCO3 - POC 23 mmol/L (21-28); Hematocrit - POC 38 % PCV (42-52); Hemodilution- POC No; Hemoglobin Calculated - POC 12.9; Ionized Calcium - POC 1.18 mmol/L (1.15-1.33); O2 Saturation %Calculated-POC 99.7 % (94-98); PCO2 - POC 39 mmHg (35-48); PO2 - POC 197 mmHg (83-108); POC Comment PRE; Potassium - POC 3.6 mmol/L (3.5-5.1); Sodium - POC 141 mmol/L (136-145); Specimen Type - POC Arterial; pH - POC 7.38 (7.35-7.45)
[2024-07-12 10:42] LABS: ACT+ - POC 524 Seconds (82-134)
[2024-07-12 10:54] LABS: B.E. - POC 2.3 mmol/L; Glucose - POC 127 mg/dl (70-99); HCO3 - POC 27 mmol/L (21-28); Hematocrit - POC 29 % PCV (42-52); Hemodilution- POC Yes; Hemoglobin Calculated - POC 9.9; Ionized Calcium - POC 1.09 mmol/L (1.15-1.33); Lactate - POC 0.92 mmol/L (0.36-0.75); O2 Saturation %Calculated-POC 99.9 % (94-98); PCO2 - POC 44 mmHg (35-48); PO2 - POC 329 mmHg (83-108); POC Comment CPB; Potassium - POC 3.5 mmol/L (3.5-5.1); Sodium - POC 139 mmol/L (136-145); Specimen Type - POC Arterial
[2024-07-12 11:03] LABS: ACT+ - POC 534 Seconds (82-134)
[2024-07-12 11:21] LABS: B.E. - POC 1.9 mmol/L; Glucose - POC 124 mg/dl (70-99); HCO3 - POC 26 mmol/L (21-28); Hematocrit - POC 32 % PCV (42-52); Hemodilution- POC Yes; Hemoglobin Calculated - POC 10.7; Ionized Calcium - POC 1.07 mmol/L (1.15-1.33); O2 Saturation %Calculated-POC 99.9 % (94-98); PCO2 - POC 37 mmHg (35-48); PO2 - POC 290 mmHg (83-108); POC Comment WARM; Potassium - POC 4.1 mmol/L (3.5-5.1); Sodium - POC 137 mmol/L (136-145); Specimen Type - POC Arterial; pH - POC 7.45 (7.35-7.45)
[2024-07-12 11:27] LABS: ACT+ - POC 96 Seconds (82-134)
[2024-07-12 11:28] LABS: B.E. - POC 0.2 mmol/L; Glucose - POC 120 mg/dl (70-99); HCO3 - POC 24 mmol/L (21-28); Hematocrit - POC 30 % PCV (42-52); Hemodilution- POC Yes; Hemoglobin Calculated - POC 10.1; Ionized Calcium - POC 1.34 mmol/L (1.15-1.33); O2 Saturation %Calculated-POC 99.9 % (94-98); PCO2 - POC 33 mmHg (35-48); PO2 - POC 243 mmHg (83-108); POC Comment POST; Potassium - POC 3.8 mmol/L (3.5-5.1); Sodium - POC 139 mmol/L (136-145); Specimen Type - POC Arterial; pH - POC 7.46 (7.35-7.45)
--- NOTE | 2024-07-12 11:45 | W.PN.CT.SURG ---
CT Surgery Operative Note
-
Pre-op Diagnosis: CAD
NSTEMI
LV dysfunction
Post-op Diagnosis: Same
Procedure: Cabg x 2, on pump
Ha- lad
ao- svg - om1
revh
KRISH ligation #35 clip
Primary Surgeon: Highbloom
Assisting Surgeons: Murt - leg
McSorley - chest
Specimen: None
Cultures: None
Complications / Blood Loss: None
Findings: Wilver with ef@40 pre with apical hypo, POST @50,still with apical hypo
KRISH without clot, completely occluded without residual pouch or flow post clip
good conduit
Diffuse cad with plaque throughout
--- NOTE | 2024-07-12 12:00 | PTCARENOTE ---
Pt received from CVOR at 1200. Pt intubated and sedated on precedex gtt. PERRLA 2mm sluggish. POX 96%. 8.0 ETT 24cm at the lip. SIMV 40% 14 550 5. Pt occasionally breathing over the ventilator. Lungs clear anteriorly. Small amount of clear sputum
via oral cavity. Left pleural and Mediastinal chest tube y-sited to 1 atrium to -20cm suction draining red fluid with initial output of 90mL. No air leak, tidaling, crepitus noted. NSR with RBBB on tele with rates in the 60s-70s. BP supported with
levophed gtt. CI 2.12 PA pressures 20s/10s. CVP 4. Bilateral radial and DP pulses palpable. No edema noted. Epicardial v-wire tied to temporary pacer box. Set to VVI 50/14/2. Heart tones audible. Abdomen soft, nontender. Hypoactive BS. Pinzon
catheter intact draining adequate amounts of clear yellow urine. Sternal incision approximated with skin glue, ROB, scant oozing noted to top of incision. Chest tube dressing CDI. Right groin puncture site approximated with skin glue, OFFICE SPEC. Right SVG
harvest approximated with skin glue, covered with MICHELLE-CDI. Right IJ cordis intact with swan floated to 45cm. Left radial mari intact. All lines flushed, leveled, zeroed. Right hand 20g PIV and Left AC 20g PIV intact. Gtts: Levophed @2, Precedex @
0.5, Insulin gtt per Critical Care Glycemic Protocol. Post op Labs, EKG, and CXR completed.
[2024-07-12 12:10] LABS: Glucose - Point of Care 111 mg/dl (70-99)
[2024-07-12] MEDS: DILAUDID 0.5 MG IV (12:14)
[2024-07-12] MEDS: ANCEF 10 IV ×2 (12:17)
[2024-07-12] MEDS: NSS 500 IV (12:17)
[2024-07-12 12:27] LABS: Hematocrit 33.6 % (39.0-52.0); Hemoglobin 11.9 g/dL (13.0-18.0)
[2024-07-12 12:32] LABS: INR 1.34; PT 16.9 Sec (11.4-14.6)
[2024-07-12 12:33] LABS: APTT 31.6 Sec (23.4-35.0)
[2024-07-12 12:34] LABS: Blood Urea Nitrogen 12 mg/dl (9-20); Estimated Creatinine Clearance 81 ml/min; Glucose 113 mg/dl (70-99); Magnesium 2.6 mg/dl (1.6-2.3)
[2024-07-12 12:40] LABS: Platelet Count 100 10^3/uL (130-400)
[2024-07-12 12:50] LABS: B.E. -5.4 mmol/L; HCO3 19.5 mmol/L (21-28); O2 Saturation % 93.8 % (94-98); PCO2 32 mmHg (35-48); PO2 69 mmHg (83-108); pH 7.39 (7.35-7.45)
[2024-07-12 12:51] LABS: Ionized Calcium 1.19 mMOL/L (1.15-1.33); Potassium 3.4 mMOL/L (3.5-5.1); Sodium 139 mMOL/L (136-145)
[2024-07-12] MEDS: KCL 50 IV ×4 (12:56→19:05)
[2024-07-12] MEDS: LR 250 ML IV ×3 (12:56→19:05)
[2024-07-12] MEDS: SODIUM BICARBONATE 50 MEQ IV ×2 (13:00→20:25)
--- NOTE | 2024-07-12 13:00 | PTCARENOTE ---
CT EXPERIMENTAL WELDER and Dr. Sun notified of CT output 125ml last hour.
[2024-07-12 13:04] LABS: Glucose - Point of Care 95 mg/dl (70-99)
[2024-07-12] MEDS: TYLENOL PO (13:29)
--- NOTE | 2024-07-12 14:00 | PTCARENOTE ---
CT ORGANIC CHEMISTRY TEACHER notified of CI 1.87.
[2024-07-12 14:03] LABS: PCO2 35 mmHg (35-48); PO2 83 mmHg (83-108)
[2024-07-12 14:04] LABS: B.E. 0.4 mmol/L; HCO3 24.3 mmol/L (21-28); O2 Saturation % 96.8 % (94-98); pH 7.45 (7.35-7.45)
[2024-07-12 14:04] LABS: Glucose - Point of Care 123 mg/dl (70-99)
--- NOTE | 2024-07-12 14:30 | PTCARENOTE ---
CT FINANCIAL SALES ASSISTANT notified of chest tube output 85ml in last 30 mins. CHG cloth bath completed and pt turned from side to side with only 35ml additional fluid out from chest tubes after turn. CT FINANCIAL SALES ASSISTANT notified.
--- NOTE | 2024-07-12 14:34 | CON.INTV ---
Consultation
Consultation Request
Date/Time Consultation Requested: 07/12/2024
Date/Time Consultation Performed: 07/12/2024
Requesting Provider: Dr. Sun
Performing Provider: Dr. Shalom Pierre
Reason for Consultation: Status post coronary artery bypass
Medical History
-
History of Present Illness:
78-year-old man with past medical history significant for hypertension, coronary disease, myocardial infarction in 2004 status post stent to LAD with residual coronary artery disease, peripheral vascular disease, hyperlipidemia, hypothyroidism who
presented to the emergency room on 07/11/2024 complaining of right-sided chest pain associated with exertion as well as shortness of breath. Patient stated that it felt similar to his heart attack.
On admission diagnosed with non-ST elevation myocardial infarction.
Underwent emergent cardiac catheterization: Report reviewed: Demonstrated 85 to 90% lesion to the distal margin of the left main coronary artery extending into 80 to 90% lesion in the ostium of the LAD. 70% ostium of the circumflex. There is 90%
lesion proximal to the prior stent of the LAD. Normal filling pressures.
NELLIE report demonstrated 43% ejection fraction. Severe apical, septal and inferior hypokinesis. Mild concentric LVH. Stage I diastolic dysfunction.
Past Medical History
Past Medical History: Other (see assessment and plan)
Social History
Tobacco: Former Smoker (Quit in 2004)
Alcohol: None
Drug: None
Personal:
Family History
Family History: Reviewed & Not Pertinent
Allergies / Home Medications
Allergies
Allergy/AdvReac Type Severity Reaction Status Date / Time
lisinopril Allergy Hives Verified 07/11/24 14:35
losartan Allergy Hives Verified 07/11/24 14:35
NKA - No Known Allergies Allergy Unknown Uncoded 07/11/24 09:46
Home Medications
�Medication �Instructions �Recorded �Confirmed �Last Taken �Type
amlodipine 5 mg tablet 5 mg PO DAILY Blood Pressure 02/17/20 07/11/24 07/11/24 History
aspirin 81 mg tablet,delayed 81 mg PO DAILY Blood Clot 02/17/20 07/11/24 07/11/24 History
release Prevention/Tx
atorvastatin 40 mg tablet 40 mg PO QPM High Cholesterol 02/17/20 07/11/24 07/11/24 History
cholecalciferol (vitamin D3) 25 1,000 units PO DAILY Supplement 02/17/20 07/11/24 07/11/24 History
mcg (1,000 unit) tablet
folic acid 400 mcg tablet 0.4 mg PO DAILY Supplement 02/17/20 07/11/24 07/11/24 History
metoprolol tartrate 25 mg tablet 12.5 mg PO BID Blood Pressure 02/17/20 07/11/24 07/11/24 History
multivitamin with folic acid 400 1 tab PO DAILY Supplement 02/17/20 07/11/24 07/11/24 History
mcg tablet (Tab-A-Kaelyn)
nitroglycerin 0.4 mg sublingual 0.4 mg sublingual Q5MPRN PRN chest 02/17/20 07/11/24 Unknown History
tablet pain
alpha lipoic acid 100 mg capsule 100 mg PO DAILY Supplement 07/11/24 07/11/24 Unknown History
hydrochlorothiazide 12.5 mg tablet 12.5 mg PO DAILY Fluid 07/11/24 07/11/24 07/11/24 History
Retention/Swelling
levothyroxine 88 mcg tablet 88 mcg PO DAILY@0600 Thyroid 07/11/24 07/11/24 07/11/24 History
(Synthroid)
Review of Systems
-
Unable to Obtain full review of systems at this time due to: Acuity and Patient Intubation
Vitals / Labs / Diagnostic Testing
Vital Signs
Temp Pulse Resp BP Pulse Ox
99.0 F 63 14 90/48 97
07/12/24 14:00 07/12/24 14:00 07/12/24 14:00 07/12/24 14:00 07/12/24 14:00
Lab Data
07/12/24 12:03
Laboratory Results
07/11/24 07/11/24 07/11/24
16:56 17:38 19:55
PT 13.7
INR 1.02
APTT > 200 H* 49.1 H
pH
pCO2
pO2
HCO3
O2 Delivery Level
07/12/24 07/12/24 07/12/24
02:57 10:55 12:03
PT 16.9 H
INR 1.34
APTT 49.1 H Cancelled 31.6
pH 7.39
pCO2 32 L
pO2 69 L
HCO3 19.5 L
O2 Delivery Level
07/12/24
13:32
PT
INR
APTT
pH 7.45
pCO2 35
pO2 83
HCO3 24.3
O2 Delivery Level
Diagnostic Testing:
Physical Exam
-
HEENT: Normocephalic and Other (ET tube in place without secretions)
Cardiovascular: S1/S2
Respiratory: Non-Labored Respirations and Other ( chest tube in place without air leak or excessive drainage)
GI: Soft
Neurology: Other (On sedation. Lethargic. Occasionally moving extremities.)
Skin: Warm
General: Comfortable
Assessment
-
Multivessel coronary artery disease status post coronary artery bypass 07/12/2024-Dr. Sun
postoperative mechanical ventilation
Postoperative anemia
-
Admitted with non-ST elevation myocardial infarction-multivessel coronary artery disease on cardiac catheterization this admission.
Ischemic cardiomyopathy ejection fraction 45%./Stage I diastolic dysfunction.
Conditions present prior admission:
Atherosclerosis.
Coronary artery disease with myocardial infarction LAD stent 2004-100% RCA occlusion and 70% mid left circumflex
Hypertension
Hyperlipidemia
Hypothyroidism
Hearing impairment
Peripheral arterial disease to the right common iliac artery.
Former smoker quit in 2004.
Assessment and plan:
He is doing well postop-currently on mechanical ventilation and appears comfortable.
ABG reviewed: . Adequate oxygenation and ventilation.
Continue SIMV mode with no change
Continue Precedex-followed commands earlier today.
Spontaneous breathing trial per protocol once sedation wears off.
Anemia noted-no evidence of acute bleeding
Follow H&H serially
Hemodynamics -acceptable 5 mics of levo
Continue hemodynamic support
Follow renal function
Pinzon in place
Chest tube with no excessive drainage-no air leak. Bloody drainage noted.
Chest x-ray reviewed: With no pneumothorax or fluid collections. Small left pleural effusion.
Remain nothing by mouth
Head of the bed elevation
Glycemic control per protocol
DVT prophylaxis when safe from the surgical perspective.
Critical care statement: A total of 31 minutes of critical care time was provided for this patient today. This includes management of unstable vital signs, evaluation of the patient at bedside, reviewing the patient's pertinent medical records
including ventilator settings, arterial blood gases, radiographs, microbiology, laboratory evaluations and discussion with primary team, critical care nursing, and respiratory therapy.
--- NOTE | 2024-07-12 15:00 | PTCARENOTE ---
CT CARE DIRECTOR RN and PA at bedside to assess patient. Notified of CT output, UO, CI and levophed requirements.
[2024-07-12 15:02] LABS: Glucose - Point of Care 110 mg/dl (70-99)
[2024-07-12] MEDS: NEURONTIN PO (15:04)
--- NOTE | 2024-07-12 15:45 | PTCARENOTE ---
RT at bedside to attempt pt on cpap trial. Several apneic periods, placed back on SIMV settings. POX 95%.
--- NOTE | 2024-07-12 16:00 | PTCARENOTE ---
Pt remains sleepy. Will awaken to physical stimuli. Able to shake head yes/no, squeeze hands, and wiggle toes. NSR with RBBB on tele with rates in the 60s. BP supported with levophed. POX 98% SIMV 40% 14 550 5. Rarely breathing over the vent. CT
output last hour WNL. UO clear yellow and adequate. Surgical sites stable. All lines remain intact.
[2024-07-12 16:09] LABS: Glucose - Point of Care 116 mg/dl (70-99)
--- NOTE | 2024-07-12 16:15 | PTCARENOTE ---
CT DIRECTOR CORPORATE SECURITY notified of CI, Levo requirements. 4 hr H/H sent, awaiting results.
[2024-07-12 16:32] LABS: Hemoglobin 12.5 g/dL (13.0-18.0); Platelet Count 184 10^3/uL (130-400)
--- NOTE | 2024-07-12 16:41 | CM ---
pt in OR today,cm to follow
[2024-07-12 17:02] LABS: Glucose - Point of Care 102 mg/dl (70-99)
[2024-07-12] MEDS: LIPITOR PO (17:05)
--- NOTE | 2024-07-12 17:10 | PTCARENOTE ---
RT at bedside to place pt on cpap trial. POX 97% pt tolerating.
[2024-07-12] MEDS: ASPIRIN 300 MG RECTAL (17:52)
[2024-07-12 18:01] LABS: PCO2 28 mmHg (35-48); PO2 85 mmHg (83-108); pH 7.46 (7.35-7.45)
[2024-07-12 18:02] LABS: HCO3 19.8 mmol/L (21-28); Ionized Calcium 1.07 mMOL/L (1.15-1.33); O2 Saturation % 97.2 % (94-98); Potassium 3.4 mMOL/L (3.5-5.1)
[2024-07-12] MEDS: CALCIUM GLUCONATE 100 IV ×2 (18:07→20:25)
--- NOTE | 2024-07-12 18:15 | PTCARENOTE ---
Cpap ABG back, CT FUR MIXER OPERATOR notified. Orders to extubate patient. RT at bedside, pt extubated to 6L NC. IS completed 750mL achieved. Pt denies pain and nausea. Alert and oriented x4. Resting in bed at this time.
[2024-07-12 19:03] LABS: Glucose - Point of Care 145 mg/dl (70-99)
[2024-07-12 19:18] LABS: B.E. -2.4 mmol/L; HCO3 21.2 mmol/L (21-28); Ionized Calcium 1.24 mMOL/L (1.15-1.33); O2 Saturation % 97.9 % (94-98); PCO2 32 mmHg (35-48); PO2 108 mmHg (83-108); Potassium 3.8 mMOL/L (3.5-5.1); Sodium 146 mMOL/L (136-145); pH 7.43 (7.35-7.45)
--- NOTE | 2024-07-12 19:35 | PTCARENOTE ---
Patient received from RN at 1900. Patient lying in bed w/ call smart in reach. VSS NSR w/ RBBB BP 121/62 HR 70 POX 98% 6L NC. AOx4. V-wires set to VVI 50/14/2 but not hooked up to box. Radial and pedal pulses present. Trace edema noted in lower
legs and ankles. Trinity removed per CT COUNTY ENGINEER Amie. Friction rub noted. 1 left pleural and 1 mediastinal chest tube to one drain, draining red fluid WNL. Suction set to 20mmHg w/ no tidaling or crepitus. IS 750 lung sounds anteriorly audible.
Hypoactive bowel sounds. Pinzon draining clear yellow urine. Sternal incision well approximated and open to air. Right groin puncture approximated and open to air. Right knee incision dry and intact w/ clarisa wrap. Levo running at 4, Insulin
running per glycemic protocol. RIJ cordis, Right wrist PIV, and Left AC PIV patent and intact.
[2024-07-12] MEDS: TORADOL 15 MG IV (19:40)
[2024-07-12] MEDS: ANCEF 5 IV (20:25)
[2024-07-12] MEDS: SENOKOT-S PO (20:26)
[2024-07-12 21:11] LABS: Glucose - Point of Care 101 mg/dl (70-99)
[2024-07-12 23:10] LABS: Glucose - Point of Care 103 mg/dl (70-99)
[2024-07-12] MEDS: NEURONTIN 100 MG PO (23:57)
[2024-07-12] MEDS: TYLENOL 1000 MG PO (23:57)
[2024-07-13] VITALS (26 sets, daily range): BP systolic 98–136; BP diastolic 53–72; PULSE 74; BMI 28.0
--- NOTE | 2024-07-13 00:30 | PTCARENOTE ---
Patient reassessed. Patient lying in bed comfortable w/ call smart in reach. VSS NSR w/ RBBB BP 107/54 HR 69 POX 96% 4L NC. Toradol given given for pain see MAR for more details. Ca2+ and bicarb given to increase BP per CT PA Ed. Levo stopped.
[2024-07-13 01:08] LABS: Glucose - Point of Care 107 mg/dl (70-99)
[2024-07-13 03:03] LABS: Glucose - Point of Care 109 mg/dl (70-99)
[2024-07-13] MEDS: ANCEF 5 IV ×2 (03:26→12:20)
--- NOTE | 2024-07-13 03:30 | PTCARENOTE ---
Patient Pinzon draining 15mL per hour. CT PA Ed notified.
[2024-07-13 03:36] LABS: Hematocrit 31.6 % (39.0-52.0); Mean Corp Hgb Conc. 34.8 g/dL (33.0-37.0); Mean Corpuscular Hgb 30.4 pg (27.0-31.0); Mean Corpuscular Volume 87.3 fL (80.0-94.0); Platelet Count 156 10^3/uL (130-400); Red Blood Cell Count 3.62 10^6/uL (4.70-6.10); Red Cell Dist. Width 13.8 % (11.5-14.5); White Blood Cell Count 13.2 10^3/uL (4.8-10.8)
[2024-07-13] MEDS: LR 250 ML IV (03:56)
--- NOTE | 2024-07-13 04:14 | PTCARENOTE ---
Patient reassessed. Patient lying in bed w/ call smart in reach. NSR BP 110/56 HR 66 POX 97% 4L NC. Levo turned off and 250 LR bolus given per CT PA Ed. EKG obtained and CT PA notified.
[2024-07-13 04:17] LABS: Blood Urea Nitrogen 17 mg/dl (9-20); Calcium 8.9 mg/dl (8.4-10.2); Carbon Dioxide 27 mmol/L (22-30); Chloride 106 mmol/L (98-107); Estimated Creatinine Clearance 71 ml/min; Glucose 107 mg/dl (70-99); Magnesium 2.1 mg/dl (1.6-2.3); Potassium 3.6 mmol/L (3.5-5.1); Sodium 137 mmol/L (135-145); eGFR > 60.00
[2024-07-13] MEDS: CALCIUM GLUCONATE 100 IV (04:28)
--- NOTE | 2024-07-13 04:28 | W.PN.CT ---
Today's Communication / Plan
-
Plan:
-No major issues overnight. Hemodynamically and neurologically intact
-Successfully extubated last night @ 181
-Weaned off Levophed gtt last night, remains on insulin gtt per protocol. Will hold AM dose of BB given soft BP postop
-D/C'd swan last night @ 1930, Last CI 2.05), u/o since OR 1015 mL
-Monitor chest tube output: 1med + L pleural 135/705. Will d/c med chest tube and bulb left pleural
-CXR with basilar atelectasis, no ptx on my review, f/u official report
-Cont. current meds (ASA, Plavix, Lopressor-will hold AM dose, Amiodarone, Lipitor)
-D/C A-line @ 0530
- D/C'd blanton @ 0600
-Telemetry phase tomorrow when off insulin gtt
-Will d/c temporary PW before d/c home, will insulate for now
-Encourage use of IS
-Wean off O2 as tolerated
-OOB into chair/Ambulate
Assessment / Plan
-
Assessment:
-S/P On Pump Cabg x 2 (Cabg x 2, Ha- lad, ao- svg - om1)/R EVH/KRISH ligation (#35 clip), by Dr. 07/12/24, pod#1
-Severe 3v CAD/80-90% distal LM
-USA
-NSTEMI (peak trop 2.99)
-ICM, LVEF 30% preop, improved to 50-55% postop, per intraop NELLIE
-Hx NE S/P stent to LAD, 2004
-Former tobacco use (quit 2004)
-Hypertension
-Hyperlipidemia
-T2DM (hgb AIC 6.4, diet controlled)
-Hypothyroidism
-Hearing impairment
-Peripheral arterial disease to the right common iliac artery
-Documented MICHELLE-I/ARBs allergy (hives)
-S/P Repair of left quadriceps tendon rupture
-Acute postop blood loss/Anemia (stable without transfusion)
-Acute postop thrombocytopenia (stable without active bleed)
-Acute postop atelectasis
-Acute postop hypoxemia
-Acute postop hypokalemia
-Acute postop hypovolemia with subsequent hypervolemia
Discussed patient care with: Cardiology, Nursing, Respiratory Therapy, Pharmacy and Care Team
Subjective
Procedure
S/P On Pump Cabg x 2 (Cabg x 2, Ha- lad, ao- svg - om1)/R EVH/KRISH ligation (#35 clip), by Dr. 07/12/24
-
Date of Service: July 13, 2024
Pt c/o incisional pain, otherwise feels well
Objective Data
-
Lab Results
07/13/24 03:22
07/13/24 03:19
PT 16.9 Sec (11.4-14.6) H 07/12/24 12:03
INR 1.34 07/12/24 12:03
APTT 31.6 Sec (23.4-35.0) 07/12/24 12:03
Vital Signs
Vital Signs
Temp Pulse Resp BP Pulse Ox
99.2 F 69 19 110/56 95
07/13/24 04:00 07/13/24 04:05 07/13/24 04:05 07/13/24 04:00 07/13/24 04:05
CT Intake/Output/Weight
07/12/24 07/12/24 07/13/24
06:59 18:59 06:59
Intake Total 359 / 1007 1244.4 / 1969.9 725.5 / 1969.9
Output Total 100 / 100 1160 / 1665 505 / 1665
Balance 259 / 907 84.4 / 304.9 220.5 / 304.9
SaO2: 95
Physical Exam
-
General: Awake, Oriented and AOx3
Cardiovascular: Regular rate & rhythm, No Murmurs, No Rub and No Gallop
Respiratory: Decreased Breath Sounds (at bases, otherwise clear)
Sternum: Stable
Incision: Clean, Dry, Intact and Dressing Intact
Extremities: Other (+trace edema)
Data Reviewed
-
Lab Results: Results Reviewed
Medications: Active Meds Reviewed
Chest X-Ray: Report Reviewed and Image Reviewed
ECG: Report Reviewed and Image Reviewed
[2024-07-13] MEDS: KCL 40 MEQ PO (04:47)
[2024-07-13 04:53] LABS: Glucose - Point of Care 89 mg/dl (70-99)
[2024-07-13 06:01] LABS: Glucose - Point of Care 87 mg/dl (70-99)
[2024-07-13] MEDS: TYLENOL 1000 MG PO ×3 (06:17→21:56)
[2024-07-13] MEDS: SYNTHROID 88 MCG PO (06:17)
--- NOTE | 2024-07-13 06:35 | PTCARENOTE ---
Labs drawn. A-line removed @[address] PA Ed[address] CHG cloth bath complected. Pinzon removed at [address] PA Ed. 2g Ca2+ given, see MAR for details. OOB to chair 2x assist call smart in reach.
--- NOTE | 2024-07-13 06:57 | W.PN.ANS.POP ---
Anesthesia Post Operative
- Anesthesia Post Op Note
Vital Signs Stable-See Nursing Note: Yes
Airway Patent: Yes
Adequate Pain Control: Yes
Change in Mental Status: No
Current Postoperative Nausea & Vomiting: No
Anesthesia Complications: No
General Anesthetic Recall: No
Unplanned Admission: No
Post Op Hydration Adequate: Yes
[2024-07-13 07:10] LABS: Glucose - Point of Care 101 mg/dl (70-99)
--- NOTE | 2024-07-13 07:39 | W.PN.CD ---
Today's Communication / Plan
-
- comfortable and in chair . prominent T wave inversions in anterolateral leads since post op no change since 07/12/24
- remaindsin sinus
- post op care per CT surgery .
consider follow up post op echo
Impression / Plan
-
CAD
- NSTMI with troponin 2.9
-see cath report: LM, ostial LAD/LCx, occluded RCA
-S/P On Pump Cabg x 2 (Cabg x 2, Ha- lad, ao- svg - om1)/R EVH/KRISH ligation (#35 clip), by Dr. uSn, 07/12/24,
- comfortable and in chair . prominent T wave inversions in anterolateral leads since post op no change since 07/12/24
- remaindsin sinus
- post op care per CT surgery .
.
Cardiomyopathy with EF 30% and LAD wall motion abnormality
- GDMT as patient recovers . Note allergy to ACEi/ARB as listed below
- consider follow up post op echo
HLD - statin
HTN - monitor post op
Reported allergy to MICHELLE-I/ARB in OP chart (hives)
- Will need to review to see if true hives that would make ARNI contraindicated
Subjective: Feels well this morning. CABG soon
Physical Exam
Vital Signs/Labs
Vital Signs
Temp Pulse Resp BP Pulse Ox
98.0 F 74 16 114/62 96
07/13/24 07:00 07/13/24 07:10 07/13/24 07:00 07/13/24 07:00 07/13/24 07:10
07/12/24 07/13/24 07/14/24
06:59 06:59 06:59
Actual Weight 74.5 kg 78.6 kg
07/13/24 03:22
07/13/24 03:19
PT 16.9 Sec (11.4-14.6) H 07/12/24 12:03
INR 1.34 07/12/24 12:03
APTT 31.6 Sec (23.4-35.0) 07/12/24 12:03
Magnesium 2.1 mg/dl (1.6-2.3) 07/13/24 03:19
Triglycerides 69 mg/dl (10-149) 07/12/24 02:57
LDL Cholesterol, Calc 60 mg/dl 07/12/24 02:57
VLDL Cholesterol, Calc 13 mg/dl (0-30) 07/12/24 02:57
HDL Cholesterol 65 mg/dl 07/12/24 02:57
TSH 1.88 uIU/ml (0.47-4.68) 07/11/24 09:45
LAB Results
07/11/24 07/11/24 07/11/24
09:45 13:11 16:56
Troponin I < 0.012 0.489 H* D 1.870 H* D
07/11/24 07/12/24 07/12/24
18:00 00:30 02:57
Troponin I Cancelled Cancelled 2.950 H*
07/12/24
12:03
Troponin I 2.990 H*
Physical Exam
Constitutional: No acute distress
Cardiovascular: Rhythm & rate is regular
Respiratory: Wheeze Absent and Rhonchi Absent
GI: Soft
Neuro/Psych: Alert
Other: Skin
Data Reviewed
-
Date of Service: July 13, 2024
Medical Decision Making: Reviewed Test Results
Echo: Report Reviewed by me
Medical Tests (PFT, Pathology etc): Report Reviewed by me
Labs: Labs Reviewed by me
--- NOTE | 2024-07-13 08:30 | PTCARENOTE ---
Resumed care of patient. Walking rounds completed with previous RN. Pt assessed while he was sitting in the chair. Pt alert and oriented x4. Rates sternal/back pain 4/10. Denies nausea, shortness of breath. MOISE with equal strength throughout. NSR on
tele with rates 70s-80s. BP 106/57. +Rub. Bilateral radial and DP pulses palpable. B/l hand and ankle edema trace. Epicardial v-wire tied to temp pacer box. POX 98% on 2L NC, titrated to RA, POX 96%. Lungs diminished in the bases. No cough noted.
IS encouraged-1000mL achieved. Abdomen soft, round, nontender. +BS. Pt reports passing gas. Tolerating clear liquid breakfast. Due to void post blanton removal. Sternal incision approximated with skin glue, ROB. Chest tubes covered, dressing CDI.
Right groin puncture site approximated with skin glue, ROB. Right SVG harvest approximated with skin glue, covered with MICHELLE. Right IJ cordis intact with NSS KVO. Right wrist 20g PIV intact infusing insulin gtt per Critical Care Glycemic Protocol.
Left AC 20g PIV intact. See MAR for medication administration. See worklist for complete nursing assessment. Plan of care reviewed and patient in agreement.
[2024-07-13 08:31] LABS: Glucose - Point of Care 116 mg/dl (70-99)
[2024-07-13] MEDS: BACTROBAN 2% OINTMENT 1 APPLIC NASAL ×2 (08:34→19:27)
[2024-07-13] MEDS: LIDOCAINE 4% PATCH 1 PATCH TOPICAL (08:34)
[2024-07-13] MEDS: NEURONTIN 100 MG PO ×3 (08:35→21:56)
[2024-07-13] MEDS: MAGNESIUM OXIDE 500 MG PO ×2 (08:35→19:28)
[2024-07-13] MEDS: LOW STRENGTH ASPIRIN 81 MG PO (08:35)
[2024-07-13] MEDS: PLAVIX 75 MG PO (08:35)
[2024-07-13] MEDS: PROTONIX 40 MG PO (08:35)
[2024-07-13] MEDS: NSS IV (08:35)
[2024-07-13] MEDS: PACERONE 200 MG PO ×3 (08:35→21:57)
[2024-07-13] MEDS: LOPRESSOR 12.5 MG PO ×2 (08:35→19:28)
[2024-07-13] MEDS: SENOKOT-S 1 TABLET PO ×2 (08:35→19:28)
[2024-07-13 10:05] LABS: Glucose - Point of Care 115 mg/dl (70-99)
--- NOTE | 2024-07-13 10:50 | PN.DE.MGMTRT ---
Insulin Management
- -
07/13/2024 Diabetes Management Consult
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 PMH HTN, HCL, HLD, hypothyroid, CAD, SD, pre diabetes. No medications for diabetes prior to admission, A1C 6.4% cr .8, eGFR > 60.
POD 1 Doing well, awake alert and oriented, oob ambulating with cardiac rehab.
Will continue glycemic protocol today and transition tomorrow.
Discussed with nurse.
Will follow
Diabetes History
- -
Pre-Admission Diabetes Regimen
07/12/24 07/13/24
12:03 03:19
Creatinine 0.7 0.8
Lab Results
Hemoglobin A1c 6.4 % (4.0-5.6) H 07/11/24 16:56
Insulin Pump Settings
IP Diabetes Regimen
07/12/24 07/12/24 07/12/24
12:03 12:07 13:02
Glucose 113 H
POC Glucose 111 H 95
07/12/24 07/12/24 07/12/24
14:02 15:01 16:05
Glucose
POC Glucose 123 H 110 H 116 H
07/12/24 07/12/24 07/12/24
17:00 19:01 21:09
Glucose
POC Glucose 102 H 145 H 101 H
07/12/24 07/13/24 07/13/24
23:08 01:05 03:02
Glucose
POC Glucose 103 H 107 H 109 H
07/13/24 07/13/24 07/13/24
03:19 04:52 05:59
Glucose 107 H
POC Glucose 89 87
07/13/24 07/13/24 07/13/24
07:09 08:29 10:03
Glucose
POC Glucose 101 H 116 H 115 H
Meal type: Breakfast
Amount consumed: 100%
Patient Education
--- NOTE | 2024-07-13 11:34 | CM ---
spoke to pt in room, he is prev indep, lives alone in a 2 story townhouse. his ex- is very supportive and said she will be helping him after he is dc'ed. he is agreeable to a f/u visit from the ct transitional care nurse after dc. he denies any
dme's. plan is for dc to home when medically stable.
--- NOTE | 2024-07-13 11:44 | CM ---
priced meds with pts [facility]- Landon/Jardieduardo/entresto all have the first month copay- $81.64 then it goes down to $61.93. pt states that is too pricey for him and is asking for generic meds.
[2024-07-13 12:20] LABS: Glucose - Point of Care 102 mg/dl (70-99)
--- NOTE | 2024-07-13 13:00 | PTCARENOTE ---
Pt reassessed. Pt resting in bed. States pain is 'tolerable'. Mediastinal chest tube d/c per orders. Left pleural chest tube placed to bulb suction draining serosanguineous fluid. Epicardial v-wire insulated. Due to void, bladder scanned for 165ml.
Denies urgency to void at this time. MICHELLE wrap d/c on right leg, Incision well approximated. Remains NSR on tele. POX 93% on RA. CT output WNL. Cordis and PIVs remain intact. No other acute changes noted.
--- NOTE | 2024-07-13 14:10 | W.PN.UPDATE ---
Update Note
Progress Note Update
Patient's allergies were checked with patient. He states that he was unclear about his reaction. However, CBC office notes were obtained and patient had hives with lisinopril in 2015 and 'occasional hives' with losartan. I asked case management to
christian Farxiga/Jardiance for him, however, he states that they are too expensive. Metoprolol tartrate was changed to metoprolol succinate.
--- NOTE | 2024-07-13 14:28 | W.PN.INTV ---
Today's Communication / Plan
Recommendations
Continue postoperative care
Follow chest tube output
Daily chest x-ray
Follow H&H
Increase activity as able
No additional recommendation, sign off.
Assessment
-
Multivessel coronary artery disease status post coronary artery bypass 07/12/2024-Dr. Sun
postoperative mechanical ventilation
Postoperative anemia
-
Admitted with non-ST elevation myocardial infarction-multivessel coronary artery disease on cardiac catheterization this admission.
Ischemic cardiomyopathy ejection fraction 45%./Stage I diastolic dysfunction.
Conditions present prior admission:
Atherosclerosis.
Coronary artery disease with myocardial infarction LAD stent 2004-100% RCA occlusion and 70% mid left circumflex
Hypertension
Hyperlipidemia
Hypothyroidism
Hearing impairment
Peripheral arterial disease to the right common iliac artery.
Former smoker quit in 2004.
Assessment and plan:
Doing well postoperative day 1
Extubated on low rate supplemental oxygen
Pain is relatively controlled
Incentive spirometry encouraged
Increase activity as able, currently sitting out of bed.
Anemia noted-no evidence of acute bleeding
Follow H&H serially
Hemodynamics -all vasoactive drugs have been discontinued.
Normal renal function
Pinzon in place
Chest tube with no excessive drainage-no air leak.
Chest x-ray reviewed: With no pneumothorax or fluid collections.
Advance diet as tolerated
Head of the bed elevation
Glycemic control per protocol
DVT prophylaxis when safe from the surgical perspective.
No additional recommendation from the critical care perspective
Sign off
Subjective Dataa
Subjective Data
Date of Service:
Date of Service: July 13, 2024
Chief Complaint: Publicity Agent Follow Up (Status postcoronary artery bypass)
Subjective:
No acute overnight issues
Extubated, sitting out of the bed on a chair
Denies worsening chest pain
Denies shortness of breath
Review of Systems
Cardiopulmonary: Cough (n) and Sputum Production (n)
GI: Abdominal Pain (n)
Objective Data
Data Reviewed
Vital Signs / I&O / Oxygen:
Vital Signs
Temp Pulse Resp BP Pulse Ox
98.7 F 74 16 110/62 94
07/13/24 12:00 07/13/24 12:00 07/13/24 12:00 07/13/24 12:00 07/13/24 12:00
Intake and Output
07/12/24 07/13/24 07/14/24
06:59 06:59 06:59
Intake Total 1007 / 1007 1990.5 / 2000.8 316.7 / 316.7
Output Total 100 / 100 1720 / 1750 70 / 70
Balance 907 / 907 270.5 / 250.8 246.7 / 246.7
SaO2 [CPAP/PSV] 97
SaO2 [SIMV] 98
SaO2 94
Nasal Cannula flow liters per 4
minute
Physical Exam
General: Comfortable
HEENT: Normocephalic
Cardiovascular: S1-S2
Respiratory: Non-Labored Respirations and Chest Tube (No air leak or excessive drainage)
GI: Soft and Non Distended
Neurology: Awake and Alert
Skin: Warm
Labs/Micro/Reports
Lab Data
07/13/24 03:22
07/13/24 03:19
Laboratory Results
07/12/24 07/12/24
17:40 19:10
pH 7.46 H 7.43
pCO2 28 L 32 L
pO2 85 108
HCO3 19.8 L 21.2
O2 Delivery Level
[2024-07-13 14:32] LABS: Glucose - Point of Care 204 mg/dl (70-99)
--- NOTE | 2024-07-13 14:40 | CM ---
CM following for DC planning needs.
Pt. is POD#[address] Surgery[address]
Reviewed initial assessment. Pt. resides alone in a private, 2 story home w/ 1 BRIAN.
Functionally, patient is indep. at baseline w/ ADLs, mobility without the use of any assisted device.
Antic. DC plan is for home w/ CT Transitional Care RN.
--- NOTE | 2024-07-13 16:00 | PTCARENOTE ---
Pt reassessed. NSR on tele with rates in the 80s. BP 101/53. POX 95% on RA. Surgical sites stable. left pleural chest tube to bulb draining small amount of serosanguineous fluid. Pt ambulated in the apple 150'. Pt voided 250ml yovani urine. Assisted
back to bed per pt request. No other acute changes from previous assessment.
[2024-07-13 16:05] LABS: Glucose - Point of Care 199 mg/dl (70-99)
[2024-07-13] MEDS: NOVOLIN R INSULIN INFUSION 100 IV (16:06)
[2024-07-13 17:42] LABS: Glucose - Point of Care 136 mg/dl (70-99)
[2024-07-13] MEDS: LIPITOR 80 MG PO (17:45)
--- NOTE | 2024-07-13 20:00 | PTCARENOTE ---
Received pt from [facility]. pt is POD #1 from CABGx5 and KRISH clip. pt is resting comfortably in bed. NSR on monitor. VSS. pt is AAOx4, denies pain. heart sounds audible, radial and DP pulses palpable, trace upper and lower extremity edema, temp
epicardial V-wires insulated. lung diminished at b/l bases, spo2 95% on RA, x1 left pleural CT to bulb. +BS x4 quadrants, abdomen soft, non tender. pt voiding clear yellow urine without difficulty. surgical sites maintained. right IJ cordis and PIVs
maintained. insulin gtt infusing. CHG bath provided with new gown and tele leads. call smart within reach. will continue to monitor.
[2024-07-13 21:57] LABS: Glucose - Point of Care 104 mg/dl (70-99)
[2024-07-13 22:09] LABS: Glucose - Point of Care 116 mg/dl (70-99)
[2024-07-13 23:46] LABS: Glucose - Point of Care 111 mg/dl (70-99)
[2024-07-14] VITALS (16 sets, daily range): BP systolic 110–129; BP diastolic 62–75; PULSE 90; O2SAT 90–91; BMI 28.1
--- NOTE | 2024-07-14 | PTCARENOTE ---
Pt assessment unchanged. pt resting comfortably in bed. NSR on monitor. VSS. call smart within reach. will continue to monitor.
[2024-07-14] MEDS: FLEXERIL 5 MG PO (01:42)
[2024-07-14] MEDS: LIDOCAINE 4% PATCH 1 PATCH TOPICAL ×2 (01:52→09:40)
[2024-07-14 02:02] LABS: Glucose - Point of Care 104 mg/dl (70-99)
[2024-07-14 02:39] LABS: Hematocrit 30.2 % (39.0-52.0); Hemoglobin 10.5 g/dL (13.0-18.0); Mean Corp Hgb Conc. 34.8 g/dL (33.0-37.0); Mean Corpuscular Hgb 30.4 pg (27.0-31.0); Mean Corpuscular Volume 87.5 fL (80.0-94.0); Mean Platelet Volume 10.7 fL (7.4-10.4); Platelet Count 141 10^3/uL (130-400); Red Blood Cell Count 3.45 10^6/uL (4.70-6.10); White Blood Cell Count 14.5 10^3/uL (4.8-10.8)
[2024-07-14 02:45] LABS: Blood Urea Nitrogen 20 mg/dl (9-20); Calcium 8.5 mg/dl (8.4-10.2); Carbon Dioxide 27 mmol/L (22-30); Chloride 102 mmol/L (98-107); Estimated Creatinine Clearance 63 ml/min; Glucose 101 mg/dl (70-99); Magnesium 2.1 mg/dl (1.6-2.3); Potassium 3.4 mmol/L (3.5-5.1); Sodium 136 mmol/L (135-145); eGFR > 60.00
--- NOTE | 2024-07-14 04:00 | PTCARENOTE ---
Pt resting comfortably in bed. NSR on monitor. VSS. pt complains of neck pain. flexeril given and lidocaine patch ordered. will continue to monitor.
[2024-07-14 04:03] LABS: Glucose - Point of Care 107 mg/dl (70-99)
[2024-07-14] MEDS: SYNTHROID 88 MCG PO (05:43)
[2024-07-14] MEDS: TYLENOL 1000 MG PO ×2 (05:43→21:54)
[2024-07-14 06:02] LABS: Glucose - Point of Care 96 mg/dl (70-99)
--- NOTE | 2024-07-14 06:27 | W.PN.CT ---
Today's Communication / Plan
-
-pod #2
-no issues overnight
-L pleur CT output 50/90 in 12/24 hrs
-allergy to MICHELLE-I and ARB. Started on Toprol 25 qd and Farxiga (pt is not interested to continue d/t cost)
-repleted KCL
-wean off O2 as tolerated
-pw is insulated
-current meds (ASA. Plavix, Toprol, Amio, Farxiga, Protonix)
-encourage IS, OOB, ambulate
-appreciate everyone's input
Assessment / Plan
-
Assessment:
-S/P On Pump Cabg x 2 (Cabg x 2, Ha- lad, ao- svg - om1)/R EVH/KRISH ligation (#35 clip), by Dr. 07/12/24, pod#2
-Severe 3v CAD/80-90% distal LM
-USA
-NSTEMI (peak trop 2.99)
-ICM, LVEF 30% preop, improved to 50-55% postop, per intraop NELLIE
-Hx [place] S/P stent to LAD, 2004
-Former tobacco use (quit 2004)
-Hypertension
-Hyperlipidemia
-T2DM (hgb AIC 6.4, diet controlled)
-Hypothyroidism
-Hearing impairment
-Peripheral arterial disease to the right common iliac artery
-Documented MICHELLE-I/ARBs allergy (hives)
-S/P Repair of left quadriceps tendon rupture
-Acute postop blood loss/Anemia (stable without transfusion)
-Acute postop thrombocytopenia (stable without active bleed)
-Acute postop atelectasis
-Acute postop hypoxemia
-Acute postop hypokalemia
-Acute postop hypovolemia with subsequent hypervolemia
Discussed patient care with: Nursing and Care Team
Subjective
Procedure
S/P On Pump Cabg x 2 (Cabg x 2, Ha- lad, ao- svg - om1)/R EVH/KRISH ligation (#35 clip), by Dr. 07/12/24
-
Date of Service: July 14, 2024
Objective Data
-
Lab Results
07/14/24 02:06
07/14/24 02:00
PT 16.9 Sec (11.4-14.6) H 07/12/24 12:03
INR 1.34 07/12/24 12:03
APTT 31.6 Sec (23.4-35.0) 07/12/24 12:03
Vital Signs
Vital Signs
Temp Pulse Resp BP Pulse Ox
98.4 F 77 16 115/64 95
07/14/24 00:00 07/14/24 03:00 07/14/24 03:00 07/14/24 03:00 07/14/24 03:00
CT Intake/Output/Weight
07/13/24 07/13/24 07/14/24
06:59 18:59 06:59
Intake Total 746.1 / 2000.8 857.9 / 957.0 99.1 / 957.0
Output Total 560 / 1750 360 / 1290 930 / 1290
Balance 186.1 / 250.8 497.9 / -333.0 -830.9 / -333.0
SaO2: 95
Physical Exam
-
General: Awake and AOx3
Cardiovascular: Regular rate & rhythm, No Murmurs and No Rub
Respiratory: Clear and Decreased Breath Sounds
Sternum: Stable
Incision: Clean, Dry and Intact
Extremities: No Edema
Abdomen: soft, nontender, nondistended, no nausea, +bowel sounds, +flatus
Data Reviewed
-
Lab Results: Results Reviewed
Medications: Active Meds Reviewed
Chest X-Ray: Report Reviewed and Image Reviewed
ECG: Report Reviewed and Image Reviewed
--- NOTE | 2024-07-14 08:04 | PN.DE.MGMTRT ---
Insulin Management
- -
07/14/2024 Diabetes Management Consult Follow up
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 PMH HTN, HCL, HLD, hypothyroid, CAD, [place], pre diabetes. No medications for diabetes prior to admission, A1C 6.4% (pre diabetes), cr .8, eGFR > 60.
POD 2 Doing well, awake alert and oriented, OOB in chair, able to discuss pre diabetes.
Will transition from glycemic protocol today; low corrective insulin AC. Farxiga has been started.
Discussed with nurse.
Will follow
Diabetes History
- -
Pre-Admission Diabetes Regimen
07/14/24
02:00
Creatinine 0.9
Lab Results
Hemoglobin A1c 6.4 % (4.0-5.6) H 07/11/24 16:56
Insulin Pump Settings
IP Diabetes Regimen
07/13/24 07/13/24 07/13/24
08:29 10:03 12:19
Glucose
POC Glucose 116 H 115 H 102 H
07/13/24 07/13/24 07/13/24
14:31 16:04 17:41
Glucose
POC Glucose 204 H 199 H 136 H
07/13/24 07/13/24 07/13/24
20:19 22:07 23:44
Glucose
POC Glucose 104 H 116 H 111 H
07/14/24 07/14/24 07/14/24
01:59 02:00 04:00
Glucose 101 H
POC Glucose 104 H 107 H
07/14/24
06:00
Glucose
POC Glucose 96
Meal type: Breakfast
Amount consumed: 100%
Patient Education
[2024-07-14 08:51] LABS: Glucose - Point of Care 103 mg/dl (70-99)
--- NOTE | 2024-07-14 09:05 | W.PN.CD ---
Today's Communication / Plan
-
- Will check echo tomorrow (07/15/2024)=> if EF 50 or more will not aggressively add meds
- Cannot use ARB/MICHELLE-i/ARNI (hives to both MICHELLE-I and ARB
- If EF less than 50 then HF BB and MRA will be appropriate to use. SGLT2-i is cost prohibitive at this time
- For his HTN makes most sense to use a HF BB and MRA as the basis of his treatment
Impression / Plan
-
CAD
- NSTMI with troponin 2.9
-see cath report: LM, ostial LAD/LCx, occluded RCA
-S/P On Pump Cabg x 2 (Cabg x 2, Ha- lad, ao- svg - om1)/R EVH/KIRSH ligation (#35 clip), by Dr. 07/12/24
Cardiomyopathy with EF 30% and LAD wall motion abnormality
- Suspect this was transient stunning with his NSTEMI and severe CAD
- LVEF much improved on postop portion of intraop NELLIE
- Will check echo tomorrow (07/15/2024)=> if EF 50 or more will not aggressively add meds
- Cannot use ARB/MICHELLE-i/ARNI (hives to both MICHELLE-I and ARB
- If EF less than 50 then HF BB and MRA will be appropriate to use. SGLT2-i is cost prohibitive at this time
HLD
- statin
- Goal LDL is less than 55
HTN
- Makes most sense to use a HF BB and MRA as the basis of his HTN treatment
- Cannot use MICHELLE-I/ARB/ARNI
Allergy to MICHELLE-I/ARB
- He had hives with lisinopril and with losartan
Subjective: Feels well this morning.
Physical Exam
Vital Signs/Labs
Vital Signs
Temp Pulse Resp BP Pulse Ox
98.6 F 80 16 120/75 94
07/14/24 04:00 07/14/24 07:00 07/14/24 07:00 07/14/24 07:00 07/14/24 07:00
07/13/24 07/14/24 07/15/24
06:59 06:59 06:59
Actual Weight 78.6 kg 79 kg
07/14/24 02:06
07/14/24 02:00
PT 16.9 Sec (11.4-14.6) H 07/12/24 12:03
INR 1.34 07/12/24 12:03
APTT 31.6 Sec (23.4-35.0) 07/12/24 12:03
Magnesium 2.1 mg/dl (1.6-2.3) 07/14/24 02:00
Triglycerides 69 mg/dl (10-149) 07/12/24 02:57
LDL Cholesterol, Calc 60 mg/dl 07/12/24 02:57
VLDL Cholesterol, Calc 13 mg/dl (0-30) 07/12/24 02:57
HDL Cholesterol 65 mg/dl 07/12/24 02:57
TSH 1.88 uIU/ml (0.47-4.68) 07/11/24 09:45
LAB Results
07/11/24 07/11/24 07/11/24
09:45 13:11 16:56
Troponin I < 0.012 0.489 H* D 1.870 H* D
07/11/24 07/12/24 07/12/24
18:00 00:30 02:57
Troponin I Cancelled Cancelled 2.950 H*
07/12/24
12:03
Troponin I 2.990 H*
Physical Exam
Constitutional: No acute distress
EENT: Anicteric
Cardiovascular: Rhythm & rate is regular and Pedal edema is absent
Respiratory: Respiratory effort normal and Lungs clear to auscul.
GI: Soft and Distention absent
Neuro/Psych: AO x 3
Data Reviewed
-
Date of Service: July 14, 2024
[2024-07-14] MEDS: PLAVIX 75 MG PO (09:38)
[2024-07-14] MEDS: TOPROL XL 25 MG PO (09:38)
[2024-07-14] MEDS: FARXIGA 10 MG PO (09:39)
[2024-07-14] MEDS: PACERONE 200 MG PO ×3 (09:39→21:54)
[2024-07-14] MEDS: SENOKOT-S 1 TABLET PO ×2 (09:39→20:10)
[2024-07-14] MEDS: LASIX 40 MG IV (09:39)
[2024-07-14] MEDS: NEURONTIN 100 MG PO ×3 (09:39→21:55)
[2024-07-14] MEDS: MAGNESIUM OXIDE 500 MG PO ×2 (09:39→20:10)
[2024-07-14] MEDS: LOW STRENGTH ASPIRIN 81 MG PO (09:39)
[2024-07-14] MEDS: KCL 40 MEQ PO (09:39)
[2024-07-14] MEDS: PROTONIX 40 MG PO (09:39)
[2024-07-14] MEDS: BACTROBAN 2% OINTMENT 1 APPLIC NASAL ×2 (09:40→20:10)
--- NOTE | 2024-07-14 11:11 | PTCARENOTE ---
assumed care of pt from previous shift RN, sinus rhythm on tele, + peripheral pulses, +1 edema to bilateral lower extremities, epicardial wire insulated. Lungs diminished, coughing and deep breathing encouraged. +bs, voids spontaneously, LP CT
removed without incident. 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 PIV and right IJ cordis w KVO infusing. Plan of care reviewed and questions encouraged.
--- NOTE | 2024-07-14 12:00 | PTCARENOTE ---
VSS, sinus rhythm maintained on tele. Pt ambulating independently.
[2024-07-14 12:04] LABS: Glucose - Point of Care 111 mg/dl (70-99)
[2024-07-14] MEDS: NSS IV (12:21)
--- NOTE | 2024-07-14 15:14 | CM ---
CM following for DC planning needs.
Attempted to meet w/ patient at bedside, patient was sleeping soundly. Will re-attempt at a later time.
DC plan remains for home w/ CT Transitional Care RN.
CM to follow.
[2024-07-14] MEDS: TYLENOL PO (16:25)
[2024-07-14] MEDS: LIPITOR 80 MG PO (16:56)
--- NOTE | 2024-07-14 17:02 | PTCARENOTE ---
pt without complaint, VSS, ambulating without issue.
[2024-07-14 17:22] LABS: Glucose - Point of Care 102 mg/dl (70-99)
--- NOTE | 2024-07-14 20:00 | PTCARENOTE ---
Assumed care of the patient at 1900. Patient in bed, AOx3, c/o 3/10 sternal discomfort, pain level acceptable. SR on the monitor, BP stable, trace LE edema, + pulses throughout. Lungs diminished at the bases, IS encouraged to 750 cc. Abdomen SNT, BS
present. Using urinal as needed, urine clear yellow. All surgical sites intact with Dermabond. PIV x2 INT, RIJ Cordis. See nursing worklist for intervention details.
--- NOTE | 2024-07-14 23:00 | PTCARENOTE ---
report received from previous RN, walking rounds done. pt sleeping. VSS. NSR on monitor, HR 70s. B/L radial and DP pulses palpable. heart tones clear. epicardial wires intact and insulted. B/L breath sounds present. POX 88% on room air --placed on
2LNC, now 92%. all surgical sites stable. RIJ cordis intact w KVO infusing. PIV intact and patent. see worklist for full assessment, VS, and interventions.
[2024-07-15 00:13] VITALS: BP 119/67
[2024-07-15 02:50] VITALS: BMI 27.4
[2024-07-15 02:54] VITALS: BP 135/76
--- NOTE | 2024-07-15 03:00 | PTCARENOTE ---
no acute changes. SR. 2LNC. all surgical sites stable. AM labs drawn and sent. weight obtained. pt sleeping between care.
[2024-07-15 03:09] LABS: Hematocrit 33.8 % (39.0-52.0); Hemoglobin 11.7 g/dL (13.0-18.0); Mean Corp Hgb Conc. 34.6 g/dL (33.0-37.0); Mean Corpuscular Hgb 30.2 pg (27.0-31.0); Mean Corpuscular Volume 87.3 fL (80.0-94.0); Mean Platelet Volume 10.9 fL (7.4-10.4); Platelet Count 151 10^3/uL (130-400); Red Blood Cell Count 3.87 10^6/uL (4.70-6.10); Red Cell Dist. Width 14.2 % (11.5-14.5); White Blood Cell Count 11.2 10^3/uL (4.8-10.8)
--- NOTE | 2024-07-15 03:18 | W.PN.CT ---
Today's Communication / Plan
-
-pod #3
-no issues overnight, ambulates
-diuresed well with 40 iv Lasix on 07/14 (UO 870/3320 in 12/24 hrs)
-BMP pending
-wean off O2 as tolerated
-current meds (ASA. Plavix, Toprol 25 qd, Amio, Farxiga, Protonix)
-encourage IS, OOB, ambulate
-appreciate everyone's input
-possible d/c soon
Assessment / Plan
-
Assessment:
-S/P On Pump Cabg x 2 (Cabg x 2, Ha- lad, ao- svg - om1)/R EVH/KRISH ligation (#35 clip), by Dr. 07/12/24, pod#3
-Severe 3v CAD/80-90% distal LM
-USA
-NSTEMI (peak trop 2.99)
-ICM, LVEF 30% preop, improved to 50-55% postop, per intraop NELLIE
-Hx [place] S/P stent to LAD, 2004
-Former tobacco use (quit 2004)
-Hypertension
-Hyperlipidemia
-T2DM (hgb AIC 6.4, diet controlled)
-Hypothyroidism
-Hearing impairment
-Peripheral arterial disease to the right common iliac artery
-Documented MICHELLE-I/ARBs allergy (hives)
-S/P Repair of left quadriceps tendon rupture
-Acute postop blood loss/Anemia (stable without transfusion)
-Acute postop thrombocytopenia (stable without active bleed)
-Acute postop atelectasis
-Acute postop hypoxemia
-Acute postop hypokalemia
-Acute postop hypovolemia with subsequent hypervolemia
Discussed patient care with: Nursing and Care Team
Subjective
Procedure
S/P On Pump Cabg x 2 (Cabg x 2, Ha- lad, ao- svg - om1)/R EVH/KRISH ligation (#35 clip), by Dr. 07/12/24
-
Date of Service: July 15, 2024
Objective Data
-
Lab Results
07/15/24 02:50
PT 16.9 Sec (11.4-14.6) H 07/12/24 12:03
INR 1.34 07/12/24 12:03
APTT 31.6 Sec (23.4-35.0) 07/12/24 12:03
Vital Signs
Vital Signs
Temp Pulse Resp BP Pulse Ox
98.2 F 79 16 119/67 92
07/15/24 00:13 07/15/24 00:13 07/15/24 00:13 07/15/24 00:13 07/15/24 00:13
CT Intake/Output/Weight
07/14/24 07/14/24 07/15/24
06:59 18:59 06:59
Intake Total 131.6 / 1000.0 151.9 / 251.9 100 / 251.9
Output Total 950 / 1310 2450 / 3320 870 / 3320
Balance -818.4 / -310.0 -2298.1 / -3068.1 -770 / -3068.1
SaO2: 92
Physical Exam
-
General: Awake and AOx3
Cardiovascular: Regular rate & rhythm, No Murmurs and No Rub
Respiratory: Clear and Decreased Breath Sounds
Sternum: Stable
Incision: Clean, Dry and Intact
Abdomen: soft, nontender, nondistended, no nausea, +bowel sounds, +flatus
Extremities: 1+Edema b/l
Data Reviewed
-
Lab Results: Results Reviewed
Medications: Active Meds Reviewed
Chest X-Ray: Report Reviewed and Image Reviewed
ECG: Report Reviewed and Image Reviewed
[2024-07-15 03:33] LABS: Blood Urea Nitrogen 25 mg/dl (9-20); Calcium 8.7 mg/dl (8.4-10.2); Carbon Dioxide 26 mmol/L (22-30); Chloride 99 mmol/L (98-107); Estimated Creatinine Clearance 57 ml/min; Glucose 100 mg/dl (70-99); Magnesium 2.4 mg/dl (1.6-2.3); Potassium 3.8 mmol/L (3.5-5.1); Sodium 135 mmol/L (135-145); eGFR > 60.00
[2024-07-15] MEDS: SYNTHROID 88 MCG PO (06:11)
[2024-07-15] MEDS: TYLENOL 1000 MG PO (06:11)
[2024-07-15 07:40] LABS: Glucose - Point of Care 88 mg/dl (70-99)
--- NOTE | 2024-07-15 08:12 | PN.DE.MGMTRT ---
Insulin Management
- -
07/15/2024: Diabetes Management Follow up
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 A1C 6.4% (pre diabetes, diet controlled), Cr 0.8, eGFR > 60.
POD #3 Doing well, awake alert and oriented, OOB in chair, able to discuss pre diabetes.
Transitioned off glycemic protocol yesterday to low corrective insulin AC and Farxiga.
Glucose has remained stable and in range, FBG 88 this AM, premeal 102 to 111.
Will not make any changes to current regimen. Provided info for prediabetes OP Class for 09/07/2024
Will cont to follow
Diabetes History
- -
Type of Diabetes: 2
Pre-Admission Diabetes Regimen
07/15/24
02:50
Creatinine 1.0
Lab Results
Hemoglobin A1c 6.4 % (4.0-5.6) H 07/11/24 16:56
Insulin Pump Settings
IP Diabetes Regimen
07/14/24 07/14/24 07/14/24
08:50 12:02 17:21
Glucose
POC Glucose 103 H 111 H 102 H
07/15/24 07/15/24
02:50 07:38
Glucose 100 H
POC Glucose 88
Meal type: Breakfast
Patient Education
--- NOTE | 2024-07-15 08:55 | W.DCSUMMARY ---
Discharge Summary
Discharge Data
Date of Admission: 07/11/24
Date of Discharge: 07/15/24
-
Pending Results: No
Hospital Course
Primary care physician: Godwin Coronado
Outpatient still worker helper: Michael Victor
Inpatient consultants: [facility] Cardiology, Pulmonary laborer/grade check, diabetes practitioner
Procedures:
1. CABG, left atrial appendage clip
Primary Diagnosis:
1. NSTEMI
Secondary Diagnoses:
1. CAD with LAD stent (2004)
2. 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
3. Hypertension
4. Hyperlipidemia
5. Peripheral arterial disease (right common iliac artery stenosis)
HPI: 78 yo male presented to [place] emergency room on 07/11/2024 after 2 episodes of right-sided chest pain with exertion associated with SOB that improved after 20-30 minutes of rest. Patient ruled in for NSTEMI (troponin 0.48).
Patient had taken his daily aspirin and was started on heparin infusion.
Hospital course: Patient underwent NELLIE on 07/11/24 which reported an EF of 30%, and patient was then taken to the Cardiac Sensor Operator and found to have left main/triple-vessel coronary disease. On 07/12, patient underwent CABG x 2 with BUCHA[place]N to LAD,
saphenous vein graft to OM1 and left atrial appendage exclusion with #[address] Dariel Sun. Postprocedure NELLIE reported improved EF to 50%. Patient received no intraoperative blood products. He returned to CVICU on Levophed,
Precedex, and insulin. Patient was extubated at 1845 on day of surgery. Patient was weaned off Levophed and started on beta-rich, aspirin, and Plavix on postoperative day #1. Mediastinal chest tubes were discontinued and left pleural chest
tube old per surgical protocol. Patient was seen by diabetes nurse practitioner and SGLT2i started. Patient concerned with cost but agreeable to try for the short-term. The left pleural chest drain was removed on postoperative day #2, patient
was diuresed with 40 IV Lasix with resultant 2150 cc of urine output in 12 hours. Postoperative day #3, patient was at baseline weight. He ambulated with cardiac rehab. Right IJ was removed and two epicardial ventricular wires clipped to skin
level. There were no episodes of arrhythmia and prophylactic amiodarone was discontinued on discharge. Lipitor was increased to high intensity dose of 80 mg daily. The Toprol tartrate was converted to succinate 25 mg daily on discharge. The
predischarge TTE reported an EF of 60-65% with normal RV size and function. Patient ambulated in halls and perform steps with cardiac rehab and is deemed stable for discharge to home today.
Home medication changes:
Stop: Amlodipine
Discharge Plan
-
Patient Disposition: Home (Routine Discharge)
Discharge Diagnosis/Procedures: NSTEMI/CABG x 2
Condition: Good
Diet: Low Cholesterol and Low Sodium
Activity: No strenuous activity
Driving Restrictions: Not until seen by your Dr
Bathing Restrictions: OK to Shower
Other Services: Cardiac Rehab
Specialty Instructions: Weigh Daily- Call MD for wt gain/loss 3 lbs overnight/5 lbs in 1 week
Referrals:
CT Transitional Care Nurse [Outside] (The Cardiothoracic Transitional Care Nurse will call you to set up a visit in 1-2 days.)
[facility] [Outside]
(Cardiac Rehab Orientation appointment is on ThuAugust 24, 2024 @0830am
The Cardiac Rehab gym is located on the first floor of the [facility].)
Gordo Coronado CRNP [Family Provider] -
Dariel Sun MD [Active] - 08/23/24 2:00 pm
Michael Victor MD [Active] - 09/06/24 10:40 am
Prescriptions:
New
atorvastatin 40 mg Tablet
80 mg PO QPM Qty: 30 2RF
acetaminophen 325 mg Tablet
650 mg PO Q4HPRN PRN (Reason: mild pain,headache,temp >101F ) Qty: 0 0RF
pantoprazole 40 mg Tablet,Delayed Release (Dr/Ec)
40 mg PO DAILY Qty: 30 1RF
metoprolol succinate 25 mg Tablet Extended Release 24 Hr
25 mg PO DAILY Qty: 30 1RF
clopidogrel 75 mg Tablet
75 mg PO DAILY Qty: 30 1RF
gabapentin 100 mg Capsule
100 mg PO TID Qty: 30 0RF
oxycodone 5 mg Tablet
5 mg PO Q4HPRN PRN (Reason: severe pain) Qty: 10 0RF
dapagliflozin propanediol 10 mg Tablet
10 mg PO DAILY Qty: 30 3RF
Continued
folic acid 0.4 MG tablet
0.4 mg PO DAILY
aspirin 81 MG tablet,delayed release (DR/EC)
81 mg PO DAILY
cholecalciferol (vitamin D3) 1,000 UNITS tablet
1,000 units PO DAILY
multivitamin with folic acid [Tab-A-Kaelyn] 1 TABLET tablet
1 tab PO DAILY
levothyroxine [Synthroid] 88 mcg tablet
88 mcg PO DAILY@0600
hydrochlorothiazide 12.5 mg tablet
12.5 mg PO DAILY
alpha lipoic acid 100 mg Capsule
100 mg PO DAILY
Discontinued
atorvastatin 40 MG tablet
40 mg PO QPM
amlodipine 5 MG tablet
5 mg PO DAILY
nitroglycerin 0.4 MG tablet, sublingual
0.4 mg sublingual Q5MPRN PRN (Reason: chest pain)
metoprolol tartrate 25 MG tablet
12.5 mg PO BID
Discharge Orders:
Discharge Patient (As Directed); Ordered 07/15/24
Ordered By: Aby Solorzano
Care Plan Goals
Care Plan Goals:
Problem: Readiness for enhanced knowledge related to diagnosis and treatment plan
Goal: Understand your diagnosis and treatment plan needs, including medications if applicable.
Instructions: Know your diagnosis, underlying causes and treatment plan options, including medications if applicable. Consult with your health care team to learn about your diagnosis and treatment plan, including medications if applicable.
Discharge Date and Time
Print Language: CENTRAL AFRICAN
[2024-07-15 09:07] VITALS: BP 128/68
--- NOTE | 2024-07-15 09:10 | W.PN.CD ---
Today's Communication / Plan
-
- Echo today (07/15/2024)=> if EF 50 or more will not aggressively add meds for reduced EF
-Cannot use ARB/MICHELLE-i/ARNI (hives to both MICHELLE-I and ARB
-SGLT-2 too expensive for pt. Not sure he will be able to stay on longterm. With current insurance about $62/month
- If EF less than 50 then HF BB and MRA will be appropriate to use. SGLT2-i is cost prohibitive at this time
- For his HTN makes most sense to use a HF BB and MRA as the basis of his treatment
Impression / Plan
-
CAD
- NSTMI with troponin 2.9
-see cath report: LM, ostial LAD/LCx, occluded RCA
-S/P On Pump Cabg x 2 (Cabg x 2, Ha- lad, ao- svg - om1)/R EVH/KRISH ligation (#35 clip), by Dr. 07/12/24
Cardiomyopathy with EF 30% and LAD wall motion abnormality
- Suspect this was transient stunning with his NSTEMI and severe CAD
- LVEF much improved on postop portion of intraop NELLIE
- Will check echo tomorrow (07/15/2024)=> if EF 50 or more will not aggressively add meds
- Cannot use ARB/MICHELLE-i/ARNI (hives to both MICHELLE-I and ARB
- If EF less than 50 then HF BB and MRA will be appropriate to use. SGLT2-i is cost prohibitive at this time
HLD
- statin
- Goal LDL is less than 55
HTN
- Makes most sense to use a HF BB and MRA as the basis of his HTN treatment
- Cannot use MICHELLE-I/ARB/ARNI
Allergy to MICHELLE-I/ARB
- He had hives with lisinopril and with losartan
Subjective: Feels well this morning.
Physical Exam
Vital Signs/Labs
Vital Signs
Temp Pulse Resp BP Pulse Ox
98.2 F 80 18 128/68 90
07/15/24 08:00 07/15/24 09:07 07/15/24 08:00 07/15/24 09:07 07/15/24 08:00
07/14/24 07/15/24 07/16/24
06:59 06:59 06:59
Actual Weight 79 kg 77 kg
07/15/24 02:50
07/15/24 02:50
PT 16.9 Sec (11.4-14.6) H 07/12/24 12:03
INR 1.34 07/12/24 12:03
APTT 31.6 Sec (23.4-35.0) 07/12/24 12:03
Magnesium 2.4 mg/dl (1.6-2.3) H 07/15/24 02:50
Triglycerides 69 mg/dl (10-149) 07/12/24 02:57
LDL Cholesterol, Calc 60 mg/dl 07/12/24 02:57
VLDL Cholesterol, Calc 13 mg/dl (0-30) 07/12/24 02:57
HDL Cholesterol 65 mg/dl 07/12/24 02:57
TSH 1.88 uIU/ml (0.47-4.68) 07/11/24 09:45
LAB Results
07/12/24
12:03
Troponin I 2.990 H*
Physical Exam
Constitutional: No acute distress
EENT: Anicteric
Cardiovascular: Rhythm & rate is regular and Pedal edema is absent
Respiratory: Respiratory effort normal and Lungs clear to auscul. (decrease at left base )
GI: Soft and Distention absent
Neuro/Psych: AO x 3
Data Reviewed
-
Date of Service: July 15, 2024
[2024-07-15] MEDS: TOPROL XL 25 MG PO (09:17)
[2024-07-15] MEDS: MAGNESIUM OXIDE 500 MG PO (09:17)
[2024-07-15] MEDS: FARXIGA 10 MG PO (09:19)
[2024-07-15] MEDS: PACERONE 200 MG PO (09:19)
[2024-07-15] MEDS: PROTONIX 40 MG PO (09:19)
[2024-07-15] MEDS: NEURONTIN 100 MG PO (09:19)
[2024-07-15] MEDS: SENOKOT-S 1 TABLET PO (09:19)
[2024-07-15] MEDS: LASIX 40 MG IV (09:19)
[2024-07-15] MEDS: LOW STRENGTH ASPIRIN 81 MG PO (09:20)
[2024-07-15] MEDS: BACTROBAN 2% OINTMENT 1 APPLIC NASAL (09:20)
[2024-07-15] MEDS: LIDOCAINE 4% PATCH TOPICAL (09:20)
[2024-07-15] MEDS: KCL 40 MEQ PO (09:20)
[2024-07-15] MEDS: PLAVIX 75 MG PO (09:20)
--- NOTE | 2024-07-15 09:20 | PTCARENOTE ---
Assumed care of patient at 0700. Pt is awake, alert, and oriented. No complaints of pain at this time. Pt remains SR with HR 80's-90's. BP 128/68 MAP 81. Epicardial V wire insulated. Pulse oximetry 90% on room air. Encouraged use of incentive
spirometer, achieving 1000. Pt tolerating PO diet. Had BM this AM. Voiding in urinal without issue. Midsternal incision and right leg incision approximated and ROB. Right IJ cordis in place with KVO. ECHO done at bedside this AM. Pt now OOB in chair
with call smart within reach.
[2024-07-15] MEDS: NSS IV (09:21)
--- NOTE | 2024-07-15 10:16 | W.PN.UPDATE ---
Update Note
Progress Note Update
No pacing required since surgery. 2 epicardial ventricular leads clipped to skin level.
--- NOTE | 2024-07-15 10:43 | PTCARENOTE ---
Epicardial V wire cut by CT GLENN, Aby. Right IJ cordis d/c'd per order.
[2024-07-15 11:03] VITALS: BP 105/95
[2024-07-15 11:09] VITALS: BP 92/60
[2024-07-15 11:13] VITALS: BP 105/95; BP 92/60; PULSE 90; O2SAT 93; O2SAT 94
--- NOTE | 2024-07-15 14:10 | PTCARENOTE ---
Steps completed with cardiac rehab. Pt showered without issue. Discharge order received, reviewed discharge instructions and questions addressed.
--- NOTE | 2024-07-15 14:36 | PTCARENOTE ---
Peripheral IVs removed. Pt stable at discharge. Pt escorted by wheelchair down to family friend for discharge.
== END 2024-07-15 14:37 | disposition home or self-care (01) | DRG 233 ==
LOC: CVICU 14:27
PROVIDERS: Anesthesiology; Clinical Nurse Specialist Acute Care; Internal Medicine Cardiovascular Disease; Nurse Practitioner; Physician Assistant; Physician Assistant Medical; Physician Assistant Surgical; ADMITTING PHYSICIAN Internal Medicine; ATTENDING PHYSICIAN Thoracic Surgery (Cardiothoracic Vascular Surgery); CONSULT PHYSICIAN Internal Medicine Critical Care Medicine; CONSULT PHYSICIAN Student in an Organized Health Care Education/Training Program; EMERGENCY PHYSICIAN Emergency Medicine; FAMILY PHYSICIAN Nurse Practitioner Family
PROC: B2111ZZ Fluoroscopy of Multiple Coronary Arteries using Low Osmolar Contrast (ICD-10-PCS; 2024-07-11)
PROC: 4A023N7 Measurement of Cardiac Sampling and Pressure, Left Heart, Percutaneous Approach (ICD-10-PCS; 2024-07-11)
PROC: 02L70CK Occlusion of Left Atrial Appendage with Extraluminal Device, Open Approach (ICD-10-PCS; 2024-07-12)
PROC: 06BP4ZZ Excision of Right Saphenous Vein, Percutaneous Endoscopic Approach (ICD-10-PCS; 2024-07-12)
PROC: B24BZZ4 Ultrasonography of Heart with Aorta, Transesophageal (ICD-10-PCS; 2024-07-12)
PROC: 02100Z9 Bypass Coronary Artery, One Artery from Left Internal Mammary, Open Approach (ICD-10-PCS; 2024-07-12)
PROC: 5A1221Z Performance of Cardiac Output, Continuous (ICD-10-PCS; 2024-07-12)
PROC: 021009W Bypass Coronary Artery, One Artery from Aorta with Autologous Venous Tissue, Open Approach (ICD-10-PCS; 2024-07-12)
DX: I21.4 Non-ST elevation (NSTEMI) myocardial infarction (principal); I50.31 Acute diastolic (congestive) heart failure; D62 Acute posthemorrhagic anemia; J98.11 Atelectasis; I11.0 Hypertensive heart disease with heart failure; I25.10 Atherosclerotic heart disease of native coronary artery without angina pectoris; H91.93 Unspecified hearing loss, bilateral; E03.9 Hypothyroidism, unspecified; R00.1 Bradycardia, unspecified; R73.03 Prediabetes; D69.59 Other secondary thrombocytopenia; E87.6 Hypokalemia; R09.02 Hypoxemia; E86.1 Hypovolemia; I73.9 Peripheral vascular disease, unspecified; I25.5 Ischemic cardiomyopathy; E78.2 Mixed hyperlipidemia; I70.8 Atherosclerosis of other arteries; I25.2 Old myocardial infarction; Z79.82 Long term (current) use of aspirin; Z79.890 Hormone replacement therapy; Z79.899 Other long term (current) drug therapy; Z87.891 Personal history of nicotine dependence; Z95.5 Presence of coronary angioplasty implant and graft
CPT/HCPCS: 93308; 71045; 71046; 80048; 80053; 80061; 81003; 81015; 82330; 82565; 82805; 82947; 82962; 83036; 83735; 84132; 84302; 84443; 84484; 84520; 85014; 85018; 85025; 85027; 85049; 85610; 85730; 86850; 86900; 86901; 86920; 93005; 93306; 93312; 93320; 93321; 93325; 93458; 93880; 94002; 99152; 99285; C1894; Q9950; Q9967

== ENCOUNTER 2024-09-05 14:07 | Outpatient (RCR) | payer OTHER, SELFPAY | END 2024-09-05 23:59 | disposition home or self-care (01) | LOC: CRHB 14:07 | PROVIDERS: ATTENDING PHYSICIAN Internal Medicine Cardiovascular Disease; FAMILY PHYSICIAN Nurse Practitioner Family | DX: I25.10 Atherosclerotic heart disease of native coronary artery without angina pectoris (principal); Z95.1 Presence of aortocoronary bypass graft | CPT/HCPCS: G0422; G0423 ==

== ENCOUNTER 2024-10-05 14:16 | Outpatient (RCR) | payer OTHER, SELFPAY | END 2024-10-05 23:59 | disposition home or self-care (01) | LOC: CRHB 14:16 | PROVIDERS: ATTENDING PHYSICIAN Internal Medicine Cardiovascular Disease; FAMILY PHYSICIAN Nurse Practitioner Family | DX: Z95.1 Presence of aortocoronary bypass graft (principal); I25.10 Atherosclerotic heart disease of native coronary artery without angina pectoris (principal) | CPT/HCPCS: G0422; G0423 ==

== ENCOUNTER 2024-11-04 14:28 | Outpatient (RCR) | payer OTHER, SELFPAY | END 2024-11-04 23:59 | disposition home or self-care (01) | LOC: CRHB 14:28 | PROVIDERS: ATTENDING PHYSICIAN Internal Medicine Cardiovascular Disease; FAMILY PHYSICIAN Nurse Practitioner Family | DX: Z95.1 Presence of aortocoronary bypass graft (principal); I25.10 Atherosclerotic heart disease of native coronary artery without angina pectoris (principal) | CPT/HCPCS: G0422; G0423 ==

== ENCOUNTER 2024-11-11 13:33 | Outpatient (RCR) | payer OTHER, SELFPAY ==
[2024-11-07 13:16] LABS: HDL Cholesterol 55 mg/dl; LDL Cholesterol, Calculated 46 mg/dl; Total Cholesterol 115 mg/dl (50-199); Triglyceride 71 mg/dl (10-149); Very Low Density Lipoprotein 14 mg/dl (0-30)
== END 2024-11-11 14:42 | disposition home or self-care (01) ==
LOC: CRHB 13:33
PROVIDERS: ATTENDING PHYSICIAN Internal Medicine Cardiovascular Disease; FAMILY PHYSICIAN Nurse Practitioner Family; REFERRING PHYSICIAN Thoracic Surgery (Cardiothoracic Vascular Surgery)
DX: I25.10 Atherosclerotic heart disease of native coronary artery without angina pectoris (principal); Z95.1 Presence of aortocoronary bypass graft; I25.2 Old myocardial infarction; I25.82 Chronic total occlusion of coronary artery; I10 Essential (primary) hypertension; E78.2 Mixed hyperlipidemia
CPT/HCPCS: 36415; 80061; G0422; G0423